=== PATIENT | female | born 1940 ===

== ENCOUNTER 2018-12-23 13:43 | Inpatient (IN) ==
[2018-12-23 14:05] LABS: Hematocrit 42.5 % (37.0-47.0); Hemoglobin 14.2 gm/dL (12.5-16.0); Mean Cell Volume 93.6 fl (78-100); Mean Corpuscular Hemoglobin 31.3 pg (27-31); Mean Corpuscular Hgb Conc 33.4 g/dl (32-36); Mean Platelet Volume 9.5 fl (8-12.5); Neutrophil # 8.2 K/mm3 (1.3-6.0); Neutrophil % 85.5 % (42-75.0); Platelet Count 300 K/mm3 (150-450); Red Blood Count 4.54 M/mm3 (4.2-5.4); Red Cell Distribution Width 12.9 % (11.5-14.0); White Blood Count 9.6 K/mm3 (4.0-10.5)
[2018-12-23 14:16] LABS: Albumin * 3.9 gm/dl (3.4-5.0); Anion Gap 13.8 mmol/L (6.8-13.8); BUN/Creatinine Ratio 20.4 (9.0-21.6); Bilirubin, Total 0.4 mg/dL (0.0-1.1); Ca. Corrected For Albumin 8.3 mg/dL (8.4-10.2); Calcium * 8.5 mg/dL (7.9-10.9); Carbon Dioxide 26.1 mmol/L (24-32.6); Potassium 3.9 mmol/L (3.4-4.6); Total Protein 7.1 gm/dL (6.2-8.2)
[2018-12-23 14:19] LABS: INR 1.01 INR (0.92-1.08); Partial Thrombolplastin Time 21.5 Seconds (24-32)
[2018-12-23] MEDS ORDERED: HYDROmorphone HCL 1 MG/ML DISP.SYRIN IV ONE (14:45)
[2018-12-23 14:53] LABS: Urine Bilirubin Negative (NEGATIVE); Urine Blood Negative /ul (NEGATIVE); Urine Ketone Negative (NEGATIVE); Urine Nitrite Negative (NEGATIVE); Urine Protein Negative (NEGATIVE); Urine Specific Gravity <=1.005 SP.GR. (1.005-1.010); Urine Urobilinogen Normal (NORMAL); Urine pH 6.5 pH (5.0-7.0)
[2018-12-23 15:07] LABS: Urine Appearance Clear (CLEAR); Urine Bacteria 1+; Urine Color Yellow; Urine RBC None Seen /hpf (0-5); Urine WBC None Seen /hpf (0-5)
--- NOTE | 2018-12-23 15:08 | ERNOTE ---
Lower Extremity HPI - Narrative Date of Service: 12/23/18 - General Lower Extremities Pain: hip: left Time Seen by Provider: 12/23/18 13:45 Source: patient, family, EMS notes reviewed Exam Limitations: no limitations - Immun/Allergies/Home Medications Immunizations: IMMUNIZATION HX Immunizations Up to Date Yes Allergies/Adverse Reactions: Allergies Allergy/AdvReac Type Severity Reaction Status Date / Time aspirin Allergy Mild Hives Verified 12/23/18 13:53 fluticasone Allergy Mild Other Verified 12/23/18 13:53 Penicillins Allergy Mild Hives Verified 12/23/18 13:53 cefprozil [From Cefzil] AdvReac Mild Nausea Verified 12/23/18 13:53 ciprofloxacin AdvReac Mild Other Verified 12/23/18 13:53 doxycycline AdvReac Mild Other Verified 12/23/18 13:53 minocycline AdvReac Mild Other Verified 12/23/18 13:53 Sulfa (Sulfonamide AdvReac Mild Other Verified 12/23/18 13:53 Antibiotics) Home Medications: HOME MEDICATIONS albuterol sulfate HFA 90 mcg/actuation aerosol inhaler 2 puff IH .Q4- 6 hours PRN #24 g 08/04/18 [Last Taken Unknown] azelastine 0.15 % (205.5 mcg) nasal spray 2 spray PASCUAL DAILY #90 ml 08/04/18 [Last Taken Unknown] denosumab 60 mg/mL subcutaneous syringe 60 mg SUB-Q [id number] #1 ml 08/04/18 [Last Taken Unknown] ergocalciferol (vitamin D2) 50,000 unit capsule 50,000 unit PO .every 2 weeks #10 cap 08/04/18 [Last Taken Unknown] fexofenadine 180 mg tablet 180 mg PO DAILY PRN #90 tab 08/04/18 [Last Taken Unknown] fluticasone 250 mcg-salmeterol 50 mcg/dose blistr powdr for inhalation 1 inh IH BID #180 ea 08/04/18 [Last Taken Unknown] ipratropium-albuterol 0.5 mg-3 mg(2.5 mg base)/3 mL nebulization soln 3 ml IH QID PRN #180 ml 08/04/18 [Last Taken Unknown] montelukast 10 mg tablet 10 mg PO QPM #90 tab 08/04/18 [Last Taken Unknown] omeprazole 40 mg capsule,delayed release 40 mg PO DAILY #90 cap 08/04/18 [Last Taken Unknown] potassium chloride ER 10 mEq tablet,extended release 10 meq PO DAILY 90 Days #90 tab 08/04/18 [Last Taken Unknown] pravastatin 40 mg tablet 40 mg PO DAILY #90 tab 08/04/18 [Last Taken Unknown] losartan 25 mg tablet 12.5 mg PO HS 90 Days #45 tab 09/05/18 [Last Taken Unknown] diltiazem CD 240 mg capsule,extended release 24 hr 240 mg PO DAILY #90 cap 09/08/18 [Last Taken Unknown] furosemide 20 mg tablet 20 mg PO DAILY #90 tab 12/01/18 [Last Taken Unknown] levothyroxine 50 mcg tablet See Rx Instructions PO DAILY #72 tab 12/01/18 [Last Taken Unknown] Zoledronic Acid/Mannitol/Water [Reclast 5 MG/100 ML Solution] 5 mg IV Q12M #1 btl 12/03/18 [Last Taken Unknown] prednisone 10 mg tablet 30 mg PO BID #42 tab 12/19/18 [Last Taken Unknown] - History of Present Illness Narrative: patient fell on left hip just mine captain, unable to walk also hurt left shoulder Occurred: just prior to arrival Location of Incident: home Method of Injury: Reports: fell, direct blow Reason for Fall: Reports: lost balance, slipped Loss of Consciousness: Reports: no loss of consciousness Modifying Factors - (Improves): Reports: rest Modifying Factors - (Worsens): Reports: movement Associated Symptoms: Reports: unable to bear weight Other Injuries: Reports: other - right shoulder Review of Systems - Review of Systems Constitutional: Present: See HPI EYE: Present: no symptoms reported ENT: Present: no symptoms reported Respiratory: Present: no symptoms reported Cardiology: Present: no symptoms reported Gastrointestinal/Abdominal: Present: no symptoms reported Genitourinary: Present: no symptoms reported Musculoskeletal: Present: See HPI, muscle pain, muscle stiffness, joint pain, joint swelling, other - right shoulder pain Skin: Present: no symptoms reported Neurological: Present: no symptoms reported Endocrine: Present: no symptoms reported Hematologic/Lymphatic: Present: no symptoms reported Psych: Present: no symptoms reported All Other Systems: All systems neg except as marked Medical History (Updated 12/20/18 @ 11:34 by Fredis Grajeda MD) Generalized anxiety disorder (Chronic) Onset Date: Unknown Asthma, moderate persistent (Chronic) Onset Date: 07/25/11 Basal cell carcinoma (BCC) (Resolved) Onset Date: 09/08/13 left lower eyelid Chronic pansinusitis (Chronic) Onset Date: 08/10/15 Chronic sinusitis (Chronic) Onset Date: 02/06/18 Febrile (Resolved) Onset Date: 01/23/18 GERD (gastroesophageal reflux disease) (Chronic) Onset Date: 02/28/11 Chronic headaches (Chronic) Onset Date: 02/06/18 Hyperlipidemia (Chronic) Onset Date: Unknown Hypertension, benign (Chronic) Onset Date: 01/23/18 Hypothyroidism (Chronic) Onset Date: 06/03/15 Osteoporosis (Chronic) Onset Date: Unknown Chronic allergic rhinitis (Chronic) Onset Date: 02/06/18 Vertigo (Chronic) Onset Date: Unknown Pain of left thumb (Acute) GERD (gastroesophageal reflux disease) (Chronic) Well-controlled Acquired hypothyroidism (Chronic) Benign essential hypertension (Chronic) Osteoarthritis (Acute) Thyroid dysfunction (Chronic) Cough (Acute) Elevated BP without diagnosis of hypertension (Ruled-out) The diagnosis of hypertension has been ruled out. Her blood pressure is elevated today, but in general it is not. Elevated LFTs (Acute) Postmenopausal (Chronic) Screening for breast cancer (Acute) Thyroid dysfunction (Chronic) Eustachian tube dysfunction (Chronic) Chronic headaches (Inactive) Conjunctivitis (Chronic) Elevated liver enzymes (Acute) Labs today. Hyponatremia (Acute) followup labs today Sinusitis (Chronic) Osteoarthritis of neck (Chronic) Hypertension (Chronic) Chronic vasomotor rhinitis (Chronic) Moderate persistent chronic asthma without complication (Chronic) Headache (Chronic) Surgical History: Surgical History (Updated 07/14/18 @ 11:51 by Ashley Leal LPN) History of appendectomy (Resolved) Onset Date: ~1977 Basal cell carcinoma (Resolved) Onset Date: 09/08/13 left lower eyelid per Dr Manning History of bladder surgery (Resolved) Onset Date: Unknown History of colonoscopy (Suspected) Onset Date: ~2014 Dr Vern Ventura- polyps; repeat in 5 years Status post functional endoscopic sinus surgery (FESS) (Resolved) Onset Date: ~1988 History of hysterectomy (Resolved) Onset Date: ~1977 partial, still has ovaries and fallopian tubes Family History: Family History (Updated 03/03/18 @ 08:33 by Gabrielle Wray LPN) Father Heart disease Prostate cancer Mother Osteoporosis History of heart bypass surgery, Onset Age: 85 Social History: Preferred Language Indian Smoking Status Never smoker Alcohol Use none Drug Use none (Last Updated 12/20/18 @ 11:35 by Fredis Grajeda MD) No Social History Section defined Physical Exam - Physical Exam General Appearance: Present: moderate distress, anxious Head Exam: Present: normal inspection, no evidence of injury Eye Exam: Normal inspection: bilateral, PERRL: bilateral, EOMI: bilateral Ears, Nose, Throat: Present: normal ENT inspection, normal pharynx Neck: Present: normal inspection, nontender Respiratory: Present: no respiratory distress, normal breath sounds, no accessory muscle use, chest nontender, lungs clear Cardiovascular/Chest: Present: regular rate, rhythm, no murmur, normal peripheral pulses Gastrointestinal/Abdominal: Present: normal bowel sounds, nontender, nondistended, soft, no organomegaly Back Exam: Present: normal inspection, normal range of motion, no CVA tenderness, no vertebral tenderness Extremity Exam: Present: normal except - - pain in left hip deformity noted, tenderness to right shoulder Neurological Exam: Present: alert, oriented, normal mood/affect, no motor/sensory deficits Skin Exam: Present: normal color, warm/dry Lymphatic Exam: Present: no adenopathy Progress - Date and Time Seen: Date and Time: 12/23/18 15:06 12/23/18 15:06 conditiion unchanged - Results and Orders Patient's Lab Results:: I have reviewed the patient's lab results. - Vital Signs Patient's Vital Signs:: I have reviewed the patient's vital signs. Vital Signs: Vital Signs 12/23/18 13:50 12/23/18 13:54 Temperature 37.1 C Pulse Rate 89 Respiratory Rate 26 H Blood Pressure 197/77 H O2 Sat by Pulse Oximetry 96 - EKG EKG #1 EKG: NSR - X-Ray X-Ray #1 X-Ray: hip Interpretation: Interp. by il - femur fracture, right shoulder no acute process, cxr no acute process - Progress/Reassessment Chief Complaint: Hip Pain/Injury Progress:: Unchanged - Transfer of Care Expected Disposition: Admit Plan - Plan Plan: to admit to hospital case discussed with dr paz and dr faria, to admit to hospital Departure Clinical Impression: Femur fracture, left - Departure Disposition: Still a patient Condition: Stable
[2018-12-23] MEDS ORDERED: ONDANSETRON HCL/PF 2 MG/ML VIAL IV PRN (15:18)
--- NOTE | 2018-12-23 17:51 | CONS ---
- Reason for consultation (1) Subtrochanteric fracture of left femur Date of Service: 12/23/18 HPI - General Narrative: Mrs. Melgar is a 78-year-old female who was at home when she fell after what she though was slipping on an area rug onto her left side resulting in pain and inability to walk. She was brought to the emergency department by EMS and found to have a displaced left subtrochanteric femur fracture. She denies reports some prior left hip pain but we reviewed that she has been on chronic osteoporosis medications that there are some radiographic signs that this could be a fracture related to this. She also reports mild chronic right hip pain w ith activity. She reports achy right shoulder pain with activity. She denies any other areas of pain at this time other than her hip and shoulder. Source: patient Exam Limitations: no limitations - History of Present Illness Timing/Duration: 4-6 hours Severity: moderate Modifying Factors - (Worsens): Reports: movement Modifying Factors - (Improves): Reports: immobilization, medication Associated Symptoms: denies symptoms Allergies/Adverse Reactions: Allergies aspirin Allergy (Mild, Verified 12/23/18 13:53) Hives wheezing as a child fluticasone Allergy (Mild, Verified 12/23/18 13:53) Other eye pressure increases per eye dr Penicillins Allergy (Mild, Verified 12/23/18 13:53) Hives cefprozil [From Cefzil] Adverse Reaction (Mild, Verified 12/23/18 13:53) Nausea ciprofloxacin Adverse Reaction (Mild, Verified 12/23/18 13:53) Other numbness doxycycline Adverse Reaction (Mild, Verified 12/23/18 13:53) Other photodermatitis minocycline Adverse Reaction (Mild, Verified 12/23/18 13:53) Other very high pressure Sulfa (Sulfonamide Antibiotics) Adverse Reaction (Mild, Verified 12/23/18 13:53) Other vasomotor rhinitis Home Medications: Home Medications Medication Instructions Recorded Last Taken albuterol sulfate HFA 90 2 puff IH .Q4- 6 hours PRN #24 g 08/04/18 Unknown mcg/actuation aerosol inhaler azelastine 0.15 % (205.5 mcg) 2 spray PASCUAL DAILY #90 ml 08/04/18 Unknown nasal spray denosumab 60 mg/mL subcutaneous 60 mg SUB-Q [id number] #1 ml 08/04/18 Unknown syringe ergocalciferol (vitamin D2) 50,000 50,000 unit PO .every 2 weeks #10 08/04/18 Unknown unit capsule cap fexofenadine 180 mg tablet 180 mg PO DAILY PRN #90 tab 08/04/18 Unknown fluticasone 250 mcg-salmeterol 50 1 inh IH BID #180 ea 08/04/18 Unknown mcg/dose blistr powdr for inhalation ipratropium-albuterol 0.5 mg-3 3 ml IH QID PRN #180 ml 08/04/18 Unknown mg(2.5 mg base)/3 mL nebulization soln montelukast 10 mg tablet 10 mg PO QPM #90 tab 08/04/18 Unknown omeprazole 40 mg capsule,delayed 40 mg PO DAILY #90 cap 08/04/18 Unknown release potassium chloride ER 10 mEq 10 meq PO DAILY 90 Days #90 tab 08/04/18 Unknown tablet,extended release pravastatin 40 mg tablet 40 mg PO DAILY #90 tab 08/04/18 Unknown losartan 25 mg tablet 12.5 mg PO HS 90 Days #45 tab 09/05/18 Unknown diltiazem CD 240 mg 240 mg PO DAILY #90 cap 09/08/18 Unknown capsule,extended release 24 hr furosemide 20 mg tablet 20 mg PO DAILY #90 tab 12/01/18 Unknown levothyroxine 50 mcg tablet See Rx Instructions PO DAILY #72 12/01/18 Unknown tab Zoledronic Acid/Mannitol/Water 5 mg IV Q12M #1 btl 12/03/18 Unknown [Reclast 5 MG/100 ML Solution] prednisone 10 mg tablet 30 mg PO BID #42 tab 12/19/18 Unknown Review of Systems - Review of Systems Generalized/Overall Review: Present: No Symptoms Reported Physical Examination - Exam Narrative: Left lower extremity: Shortened limb, palpable dorsalis pedis pulse, sensation intact light touch, no ecchymosis, lacerations or abrasions of the left hip, pain with any hip range of motion, able to move toes and ankle with hip pain. RUE - NVI, mild pain with active forward flexion and passive shoulder ROM, no gross deformity or echymosis Vital Signs: Vital Signs - Last Taken Temp 37.1 C 12/23/18 15:23 Pulse 80 12/23/18 16:10 Resp 20 12/23/18 15:23 BP 172/75 H 12/23/18 15:23 Pulse Ox 95 12/23/18 15:23 O2 Oxygen Delivery Method Room Air Constitutional: Present: Alert, Oriented x3 - Results and Findings: Narrative: AP pelvis 2 views of left hip: Displaced transverse subtrochanteric femur fracture, right side with cortical thickening in the same region which is somewhat concerning for stress reaction and possible chronic osteoporotic medication reaction. Lab/Microbiology results last 24 hrs: Abnormal/Pending Laboratory Last 24 HRS 12/23/18 12/23/18 12/23/18 Unknown 13:59 13:59 MCH Immature Gran % (Auto) Immature Gran # (Auto) Neutrophils % Lymphocytes % Neutrophils # Lymphocytes # PTT (Jordan) 21.5 L Est GFR (Non-Af Amer) 58 L Random Glucose 131 H Calcium Adj for Albumin 8.3 L Urine Bacteria 1+ H 12/23/18 13:59 MCH 31.3 H Immature Gran % (Auto) 1.50 H Immature Gran # (Auto) 0.14 H Neutrophils % 85.5 H Lymphocytes % 8.7 L Neutrophils # 8.2 H Lymphocytes # 0.83 L PTT (Merrick) Est GFR (Non-Af Amer) Random Glucose Calcium Adj for Albumin Urine Bacteria - Assessments/Findings (1) Subtrochanteric fracture of left femur Diagnosis(s): We reviewed her radiographs. At this time she needs to have her left hip repaired. The plan is for closed reduction intramedullary fixation tomorrow. We did review that she may benefit from prophylactic nailing of her right hip but we will perform this once she is recovering well from her left hip. She will need 6 weeks of DVT prophylaxis postoperatively. I would recommend that she discontinue her osteoporosis medications at this time. We did discuss that the significant half-life of this medication. The risks and recovery of her surgery were also discussed. She will need to be n.p.o. after midnight and consent will be obtained. She will receive IV Ancef perioperatively. Problem: Acute Qualifiers: Encounter type: initial encounter Fracture type: closed Fracture alignment: displaced Qualified Code(s): S72.22XA - Displaced subtrochanteric fracture of left femur, initial encounter for closed fracture
[2018-12-23] MEDS: NORMAL SALINE 1,000 ML IV PRN (17:59)
[2018-12-23] MEDS ORDERED: ceFAZolin SODIUM 1 GM VIAL IV PRN (18:12)
[2018-12-23] MEDS ORDERED: ALBUTEROL SULFATE/IPRATROPIUM 3 ML NEBU IH PRN (19:28)
[2018-12-23] MEDS ORDERED: ALBUTEROL SULFATE 200 PUFF INHALER IH PRN (19:28)
--- NOTE | 2018-12-23 19:28 | HP ---
Chief Complaint - Chief Complaint Date of Service: 12/23/18 Time of Service: 19:28 Chief Complaint: hip pain, fall History of Present Illness: 78-year-old female had a ground-level fall in her home today. She was unable to bear weight on her left hip, she is brought into the hospital by ambulance. She was evaluated in the ER, x-ray showed her to have a sub-trochanteric left femur fracture. Ortho was consulted in the ER who plan to repair the hip tomorrow. Her pain is well controlled since being admitted to the hospital, vital signs are stable. Medical History (Updated 12/23/18 @ 17:51 by Blu Ball MD) Generalized anxiety disorder (Chronic) Onset Date: Unknown Asthma, moderate persistent (Chronic) Onset Date: 07/25/11 Basal cell carcinoma (BCC) (Resolved) Onset Date: 09/08/13 left lower eyelid Chronic pansinusitis (Chronic) Onset Date: 08/10/15 Chronic sinusitis (Chronic) Onset Date: 02/06/18 Febrile (Resolved) Onset Date: 01/23/18 GERD (gastroesophageal reflux disease) (Chronic) Onset Date: 02/28/11 Chronic headaches (Chronic) Onset Date: 02/06/18 Hyperlipidemia (Chronic) Onset Date: Unknown Hypertension, benign (Chronic) Onset Date: 01/23/18 Hypothyroidism (Chronic) Onset Date: 06/03/15 Osteoporosis (Chronic) Onset Date: Unknown Chronic allergic rhinitis (Chronic) Onset Date: 02/06/18 Vertigo (Chronic) Onset Date: Unknown Pain of left thumb (Acute) GERD (gastroesophageal reflux disease) (Chronic) Well-controlled Acquired hypothyroidism (Chronic) Benign essential hypertension (Chronic) Osteoarthritis (Acute) Thyroid dysfunction (Chronic) Cough (Acute) Elevated BP without diagnosis of hypertension (Ruled-out) The diagnosis of hypertension has been ruled out. Her blood pressure is elevated today, but in general it is not. Elevated LFTs (Acute) Postmenopausal (Chronic) Screening for breast cancer (Acute) Thyroid dysfunction (Chronic) Eustachian tube dysfunction (Chronic) Chronic headaches (Inactive) Conjunctivitis (Chronic) Elevated liver enzymes (Acute) Labs today. Hyponatremia (Acute) followup labs today Sinusitis (Chronic) Osteoarthritis of neck (Chronic) Hypertension (Chronic) Chronic vasomotor rhinitis (Chronic) Moderate persistent chronic asthma without complication (Chronic) Headache (Chronic) Surgical History: Surgical History (Updated 12/23/18 @ 17:51 by Blu Ball MD) History of appendectomy (Resolved) Onset Date: ~1977 Basal cell carcinoma (Resolved) Onset Date: 09/08/13 left lower eyelid per Dr Manning History of bladder surgery (Resolved) Onset Date: Unknown History of colonoscopy (Suspected) Onset Date: ~2014 Dr Vern Ventura- polyps; repeat in 5 years Status post functional endoscopic sinus surgery (FESS) (Resolved) Onset Date: ~1988 History of hysterectomy (Resolved) Onset Date: ~1977 partial, still has ovaries and fallopian tubes Family History: Family History (Updated 03/03/18 @ 08:33 by Gabrielle Wray LPN) Father Heart disease Prostate cancer Mother Osteoporosis History of heart bypass surgery, Onset Age: 85 Social History: Patient Lives/Resources With Spouse Utilized Occupation retired Preferred Language Puerto Rican Do you have any mu-ism or Yes: Holiness cultural preference? Smoking Status Former smoker Have you smoked in the past 12 No months Do you dip or chew tobacco No Alcohol Use none Drug Use none (Last Updated 12/20/18 @ 11:35 by Fredis Grajeda MD) No Social History Section defined Review Of Systems (GEN) - Review of Systems Generalized/Overall Review: Absent: Weakness, Chills, Fever EENTM: Present: No Symptoms Reported Respiratory: Absent: Cough, Shortness of Breath Cardiac: Absent: Chest Pain, Edema Abdominal: Present: No Symptoms Reported Genitourinary: Present: No Symptoms Reported Musculoskeletal: Present: Joint Pain - Left hip, right shoulder, Joint Swelling, Muscle Pain Neurological: Present: No Symptoms Reported Skin: Present: No Symptoms Reported Endocrine: Present: No Symptoms Reported Immunizations: IMMUNIZATION HX Immunizations Up to Date Yes Allergies/Adverse Reactions: Allergies Allergy/AdvReac Type Severity Reaction Status Date / Time aspirin Allergy Mild Hives Verified 12/23/18 13:53 fluticasone Allergy Mild Other Verified 12/23/18 13:53 Penicillins Allergy Mild Hives Verified 12/23/18 13:53 cefprozil [From Cefzil] AdvReac Mild Nausea Verified 12/23/18 13:53 ciprofloxacin AdvReac Mild Other Verified 12/23/18 13:53 doxycycline AdvReac Mild Other Verified 12/23/18 13:53 minocycline AdvReac Mild Other Verified 12/23/18 13:53 Sulfa (Sulfonamide AdvReac Mild Other Verified 12/23/18 13:53 Antibiotics) Home Medications: HOME MEDICATIONS albuterol sulfate HFA 90 mcg/actuation aerosol inhaler 2 puff IH .Q4- 6 hours PRN #24 g 08/04/18 [Last Taken Unknown] azelastine 0.15 % (205.5 mcg) nasal spray 2 spray PASCUAL DAILY #90 ml 08/04/18 [Last Taken Unknown] denosumab 60 mg/mL subcutaneous syringe 60 mg SUB-Q [id number] #1 ml 08/04/18 [Last Taken Unknown] ergocalciferol (vitamin D2) 50,000 unit capsule 50,000 unit PO .every 2 weeks #10 cap 08/04/18 [Last Taken Unknown] fexofenadine 180 mg tablet 180 mg PO DAILY PRN #90 tab 08/04/18 [Last Taken Unknown] fluticasone 250 mcg-salmeterol 50 mcg/dose blistr powdr for inhalation 1 inh IH BID #180 ea 08/04/18 [Last Taken Unknown] ipratropium-albuterol 0.5 mg-3 mg(2.5 mg base)/3 mL nebulization soln 3 ml IH QID PRN #180 ml 08/04/18 [Last Taken Unknown] montelukast 10 mg tablet 10 mg PO QPM #90 tab 08/04/18 [Last Taken Unknown] omeprazole 40 mg capsule,delayed release 40 mg PO DAILY #90 cap 08/04/18 [Last Taken Unknown] potassium chloride ER 10 mEq tablet,extended release 10 meq PO DAILY 90 Days #90 tab 08/04/18 [Last Taken Unknown] pravastatin 40 mg tablet 40 mg PO DAILY #90 tab 08/04/18 [Last Taken Unknown] losartan 25 mg tablet 12.5 mg PO HS 90 Days #45 tab 09/05/18 [Last Taken Unknown] diltiazem CD 240 mg capsule,extended release 24 hr 240 mg PO DAILY #90 cap 09/08/18 [Last Taken Unknown] furosemide 20 mg tablet 20 mg PO DAILY #90 tab 12/01/18 [Last Taken Unknown] levothyroxine 50 mcg tablet See Rx Instructions PO DAILY #72 tab 12/01/18 [Last Taken Unknown] Zoledronic Acid/Mannitol/Water [Reclast 5 MG/100 ML Solution] 5 mg IV Q12M #1 btl 12/03/18 [Last Taken Unknown] prednisone 10 mg tablet 30 mg PO BID #42 tab 12/19/18 [Last Taken Unknown] Exam - Exam Vital Signs: Vital Signs - Last Taken Temp 37.1 C 12/23/18 15:23 Pulse 80 12/23/18 16:10 Resp 20 12/23/18 15:23 BP 172/75 H 12/23/18 15:23 Pulse Ox 95 12/23/18 15:23 Constitutional: Present: Alert, Oriented x3, Cooperative, Well developed ENT Exam: Present: hearing grossly normal. Absent: nasal congestion, nasal drainage Eye Exam: bilateral eye: normal inspection Neck: Present: non-tender, supple Respiratory: Present: lungs clear, normal breath sounds Cardiovascular/Chest: Present: normal peripheral pulses - Doppler of the left dorsal pedis pulse 2/4, regular rate, rhythm, no chest tenderness. Absent: tachycardia, systolic murmur Abdomen: Present: Normal bowel sounds, soft, nontender /Rectal: Present: Exam deferred Extremity: Present: normal capillary refill, leg pain - Left leg. Absent: normal range of motion Skin Exam: Present: normal color, warm/dry Neurologic: Absent: motor weakness, sensory deficit Appearance: Present: appropriate appearance, appropriate insight, neat Eye contact: Present: cooperative, good eye contact Thoughts: Present: normal thought pattern, normal mood /affect - This Diagnostic Studies: Abnormal Lab Results 12/23/18 12/23/18 12/23/18 Range/Units 13:59 13:59 13:59 MCH 31.3 H (27-31) pg Immature Gran % (Auto) 1.50 H (0.001-0.429) % Immature Gran # (Auto) 0.14 H (0.000-0.0310) K/mm3 Neutrophils % 85.5 H (42-75.0) % Lymphocytes % 8.7 L (20-51) % Neutrophils # 8.2 H (1.3-6.0) K/mm3 Lymphocytes # 0.83 L (1.5-3.5) k/mm3 PTT ([place]) 21.5 L (24-32) Seconds Est GFR (Non-Af Amer) 58 L (60-130) mL/min Random Glucose 131 H (70-110) mg/dL Calcium Adj for Albumin 8.3 L (8.4-10.2) mg/dL Urine Bacteria (NONE) 12/23/18 Range/Units Unknown MCH (27-31) pg Immature Gran % (Auto) (0.001-0.429) % Immature Gran # (Auto) (0.000-0.0310) K/mm3 Neutrophils % (42-75.0) % Lymphocytes % (20-51) % Neutrophils # (1.3-6.0) K/mm3 Lymphocytes # (1.5-3.5) k/mm3 PTT ([place]) (24-32) Seconds Est GFR (Non-Af Amer) (60-130) mL/min Random Glucose (70-110) mg/dL Calcium Adj for Albumin (8.4-10.2) mg/dL Urine Bacteria 1+ H (NONE) Laboratory Results WBC 9.6 K/mm3 (4.0-10.5) 12/23/18 13:59 RBC 4.54 M/mm3 (4.2-5.4) 12/23/18 13:59 Hgb 14.2 gm/dL (12.5-16.0) 12/23/18 13:59 Hct 42.5 % (37.0-47.0) 12/23/18 13:59 MCV 93.6 fl (78-100) 12/23/18 13:59 MCH 31.3 pg (27-31) H 12/23/18 13:59 MCHC 33.4 g/dl (32-36) 12/23/18 13:59 RDW 12.9 % (11.5-14.0) 12/23/18 13:59 Plt Count 300 K/mm3 (150-450) 12/23/18 13:59 MPV 9.5 fl (8-12.5) 12/23/18 13:59 Immature Gran % (Auto) 1.50 % (0.001-0.429) H 12/23/18 13:59 Immature Gran # (Auto) 0.14 K/mm3 (0.000-0.0310) H 12/23/18 13:59 85.5 % (42-75.0) H 12/23/18 13:59 8.7 % (20-51) L 12/23/18 13:59 4.2 % (0.0-9) 12/23/18 13:59 0.0 % (0.0-3.0) 12/23/18 13:59 0.1 % (0.0-1.0) 12/23/18 13:59 Nucleated RBC % 0.0 k/mm3 (0-1) 12/23/18 13:59 8.2 K/mm3 (1.3-6.0) H 12/23/18 13:59 0.83 k/mm3 (1.5-3.5) L 12/23/18 13:59 0.4 k/mm3 (0.0-1.0) 12/23/18 13:59 0.0 k/mm3 (0.0-0.7) 12/23/18 13:59 Absolute Basophils 0.0 k/mm3 (0.0-0.1) 12/23/18 13:59 PT 10.0 Seconds (9.1-10.7) 12/23/18 13:59 INR (Anticoag Therapy) 1.01 INR (0.92-1.08) 12/23/18 13:59 PTT ([place]) 21.5 Seconds (24-32) L 12/23/18 13:59 Sodium 135 mmol/L (132-142) 12/23/18 13:59 135 mmol/L (130-142) 12/23/18 13:59 Potassium 3.9 mmol/L (3.4-4.6) 12/23/18 13:59 Chloride 99 mmol/L (97-106) 12/23/18 13:59 Carbon Dioxide 26.1 mmol/L (24-32.6) 12/23/18 13:59 13.8 mmol/L (6.8-13.8) 12/23/18 13:59 BUN 20 mg/dL (3-23) 12/23/18 13:59 0.98 mg/dL (0.4-1.4) 12/23/18 13:59 Est GFR (Non-Af Amer) 58 mL/min (60-130) L 12/23/18 13:59 20.4 (9.0-21.6) 12/23/18 13:59 131 mg/dL (70-110) H 12/23/18 13:59 Calcium 8.5 mg/dL (7.9-10.9) 12/23/18 13:59 Calcium Adj for Albumin 8.3 mg/dL (8.4-10.2) L 12/23/18 13:59 0.4 mg/dL (0.0-1.1) 12/23/18 13:59 AST 16 U/L (0-48) 12/23/18 13:59 ALT 28 U/L (19-67) 12/23/18 13:59 72 U/L (50-170) 12/23/18 13:59 7.1 gm/dL (6.2-8.2) 12/23/18 13:59 3.9 gm/dl (3.4-5.0) 12/23/18 13:59 Yellow 12/23/18 Unknown Clear (CLEAR) 12/23/18 Unknown 6.5 pH (5.0-7.0) 12/23/18 Unknown Ur Specific [place] <=1.005 SP.GR. (1.005-1.010) 12/23/18 Unknown Negative mg/dL (NEGATIVE) 12/23/18 Unknown Negative mg/dL (NEGATIVE) 12/23/18 Unknown Negative mg/dL (NEGATIVE) 12/23/18 Unknown Negative /ul (NEGATIVE) 12/23/18 Unknown Negative (NEGATIVE) 12/23/18 Unknown Negative mg/dl (NEGATIVE) 12/23/18 Unknown Normal EU/dl (NORMAL) 12/23/18 Unknown Ur Leukocyte Esterase Negative /ul (NEGATIVE) 12/23/18 Unknown None seen /hpf (0-5) 12/23/18 Unknown None seen /hpf (0-5) 12/23/18 Unknown Ur Epithelial Cells Trace /hpf (0-5) 12/23/18 Unknown 1+ (NONE) H 12/23/18 Unknown No culture indicated 12/23/18 Unknown Assessment/Plan - Narrative Narrative: Patient admitted under inpatient for left subtrochanteric femur fracture repair. Patient will be placed n.p.o. at midnight, will start normal saline at 125 an hour at that time. IV pain meds ordered. Patient currently comfortable and has no concerns. Patient's blood pressure elevated likely due to pain. Will give her 24-hour hypertensive medication this evening so she will not need to take any in the morning. Will order as needed IV hypertensive medications to be given if systolic pressures continue to be greater than 170. Chronic medications restarted. No DVT prophylaxis at this time. Nurse will call with any questions or concerns. - Assessment/Plan (1) Subtrochanteric fracture of left femur Problem: Acute Qualifiers: Encounter type: initial encounter Fracture type: closed Fracture alignment: displaced Qualified Code(s): S72.22XA - Displaced subtrochanteric fracture of left femur, initial encounter for closed fracture (2) Hypertension, benign Problem: Chronic (3) GERD (gastroesophageal reflux disease) Problem: Chronic (4) Hypothyroidism Problem: Chronic Qualifiers: Hypothyroidism type: acquired Qualified Code(s): E03.9 - Hypothyroidism, unspecified (5) Moderate persistent chronic asthma without complication Problem: Chronic
[2018-12-23] MEDS: DILTIAZEM HCL 240 MG CAP.SR.24H PO SCH (21:20)
[2018-12-23] MEDS: FLUTICASONE PROPION/SALMETEROL 14 PUFF DISK.W.DEV IH SCH (21:20)
[2018-12-23] MEDS: LOSARTAN POTASSIUM 50 MG TABLET PO SCH (21:20)
[2018-12-23] MEDS: HYDROmorphone HCL 1 MG/ML DISP.SYRIN IV PRN (22:32)
[2018-12-24] MEDS ORDERED: NORMAL SALINE 1,000 ML IV ONE (00:01)
[2018-12-24] MEDS: HYDROmorphone HCL 1 MG/ML DISP.SYRIN IV PRN ×4 (04:36→12:27)
[2018-12-24] MEDS ORDERED: ALBUTEROL SULFATE 2.5 MG/0.5 ML VIAL.NEB IH PRN (06:33)
[2018-12-24] MEDS: PANTOPRAZOLE SODIUM 40 MG TABLET.EC PO SCH (06:50)
[2018-12-24] MEDS: LEVOTHYROXINE SODIUM 50 MCG TABLET PO SCH (06:50)
[2018-12-24] MEDS ORDERED: SIMVASTATIN 20 MG TABLET PO SCH (09:00)
[2018-12-24] MEDS ORDERED: DILTIAZEM HCL 240 MG PO SCH (09:00)
[2018-12-24] MEDS ORDERED: OMEPRAZOLE 20 MG CAPSULE.SA PO SCH (09:00)
[2018-12-24] MEDS: NORMAL SALINE 1,000 ML IV PRN (09:32)
[2018-12-24] MEDS: DILTIAZEM HCL 240 MG CAP.SR.24H PO SCH (09:36)
[2018-12-24] MEDS: FLUTICASONE PROPION/SALMETEROL 14 PUFF DISK.W.DEV IH SCH ×3 (09:38→21:38)
[2018-12-24] MEDS: AZELASTINE HCL 200 SPRAY INHALER NS SCH (09:38)
--- NOTE | 2018-12-24 10:34 | PN ---
Subjective - Date and Time Seen Date: 12/24/18 Time: 10:33 Objective Objective Narrative: Patient did well overnight, no complications or adverse events. Vital signs have been stable. Pain well controlled. Patient able to move her leg wiggle her toes, though with significant pain. Currently n.p.o., waiting for surgery. - Review of Systems Generalized/Overall Review: Denies: Weakness, Chills, Fever EENTM: Reports: No Symptoms Reported Respiratory: Denies: Cough, Shortness of Breath Cardiac: Denies: Chest Pain, Edema Abdominal: Denies: Nausea, Vomiting Genitourinary Symptoms: Reports: No Symptoms Reported Musculoskeletal Complaints: Reports: Joint Pain - Left hip, Muscle Pain Neurological: Denies: Numbness, Tingling Skin: Reports: No Symptoms Reported - Vitals Vitals: Last Vital Signs Temp 37.0 C 12/24/18 10:00 Pulse 61 12/24/18 10:00 Resp 16 12/24/18 10:00 BP 169/72 H 12/24/18 10:00 Pulse Ox 93 12/24/18 10:00 - Abnormal Lab Findings Abnormal Lab Findings: Abnormal Lab Results 12/23/18 12/23/18 12/23/18 Range/Units 13:59 13:59 13:59 MCH 31.3 H (27-31) pg Immature Gran % (Auto) 1.50 H (0.001-0.429) % Immature Gran # (Auto) 0.14 H (0.000-0.0310) K/mm3 Neutrophils % 85.5 H (42-75.0) % Lymphocytes % 8.7 L (20-51) % Neutrophils # 8.2 H (1.3-6.0) K/mm3 Lymphocytes # 0.83 L (1.5-3.5) k/mm3 PTT ([place]) 21.5 L (24-32) Seconds Est GFR (Non-Af Amer) 58 L (60-130) mL/min Random Glucose 131 H (70-110) mg/dL Calcium Adj for Albumin 8.3 L (8.4-10.2) mg/dL Urine Bacteria (NONE) 12/23/18 Range/Units Unknown MCH (27-31) pg Immature Gran % (Auto) (0.001-0.429) % Immature Gran # (Auto) (0.000-0.0310) K/mm3 Neutrophils % (42-75.0) % Lymphocytes % (20-51) % Neutrophils # (1.3-6.0) K/mm3 Lymphocytes # (1.5-3.5) k/mm3 PTT ([place]) (24-32) Seconds Est GFR (Non-Af Amer) (60-130) mL/min Random Glucose (70-110) mg/dL Calcium Adj for Albumin (8.4-10.2) mg/dL Urine Bacteria 1+ H (NONE) - Exam Constitutional: Present: Alert, Oriented x3 ENT Exam: Present: hearing grossly normal Neck: Present: non-tender, supple Breasts: Present: Exam deferred Respiratory: Present: lungs clear, normal breath sounds Cardiovascular/Chest: Present: normal peripheral pulses, regular rate, rhythm Abdomen: Present: soft, nontender, nondistended /Rectal: Present: Exam deferred Extremity: Present: normal capillary refill. Absent: normal range of motion - Deferred due to injury, non-tender Skin Exam: Present: normal color Eye contact: Present: cooperative, good eye contact Thoughts: Present: normal thought pattern, normal mood /affect Assessment/Plan Plan Narrative: Patient currently in minimal pain resting comfortably in bed, she has only required 1 dose of IV pain medication since moving to the floor from the ER. Her blood pressure has been mildly elevated but still within an acceptable range, no reason why she cannot proceed with surgery. She is currently n.p.o. Home medications are ordered and will be restarted once she is finished with surgery and placed on a regular diet. She will likely be transitioned to oral pain medications following surgery. Regular diet to be ordered. Anticoagulation is to be started, will allow Dr. Moser to run that part of her medical care at this time. Otherwise she is doing well, nurses to call with any questions or concerns. - Problems/Diagnosis (1) Subtrochanteric fracture of left femur Problem: Acute Qualifiers: Encounter type: initial encounter Fracture type: closed Fracture alignment: displaced Qualified Code(s): S72.22XA - Displaced subtrochanteric fracture of left femur, initial encounter for closed fracture (2) Hypertension, benign Problem: Chronic (3) GERD (gastroesophageal reflux disease) Problem: Chronic (4) Hypothyroidism Problem: Chronic Qualifiers: Hypothyroidism type: acquired Qualified Code(s): E03.9 - Hypothyroidism, unspecified (5) Moderate persistent chronic asthma without complication Problem: Chronic
--- NOTE | 2018-12-24 12:51 | ANES ---
Anesthesia Pre Procedure Eval Vitals/Labs: Last Vital Signs Temp 37.0 C 12/24/18 10:00 Pulse 61 12/24/18 10:00 Resp 16 12/24/18 10:00 BP 169/72 H 12/24/18 10:00 Pulse Ox 93 12/24/18 10:00 Laboratory Last Values WBC 9.6 K/mm3 (4.0-10.5) 12/23/18 13:59 RBC 4.54 M/mm3 (4.2-5.4) 12/23/18 13:59 Hgb 14.2 gm/dL (12.5-16.0) 12/23/18 13:59 Hct 42.5 % (37.0-47.0) 12/23/18 13:59 MCV 93.6 fl (78-100) 12/23/18 13:59 MCH 31.3 pg (27-31) H 12/23/18 13:59 MCHC 33.4 g/dl (32-36) 12/23/18 13:59 RDW 12.9 % (11.5-14.0) 12/23/18 13:59 Plt Count 300 K/mm3 (150-450) 12/23/18 13:59 MPV 9.5 fl (8-12.5) 12/23/18 13:59 Immature Gran % (Auto) 1.50 % (0.001-0.429) H 12/23/18 13:59 Immature Gran # (Auto) 0.14 K/mm3 (0.000-0.0310) H 12/23/18 13:59 85.5 % (42-75.0) H 12/23/18 13:59 8.7 % (20-51) L 12/23/18 13:59 4.2 % (0.0-9) 12/23/18 13:59 0.0 % (0.0-3.0) 12/23/18 13:59 0.1 % (0.0-1.0) 12/23/18 13:59 Nucleated RBC % 0.0 k/mm3 (0-1) 12/23/18 13:59 8.2 K/mm3 (1.3-6.0) H 12/23/18 13:59 0.83 k/mm3 (1.5-3.5) L 12/23/18 13:59 0.4 k/mm3 (0.0-1.0) 12/23/18 13:59 0.0 k/mm3 (0.0-0.7) 12/23/18 13:59 Absolute Basophils 0.0 k/mm3 (0.0-0.1) 12/23/18 13:59 PT 10.0 Seconds (9.1-10.7) 12/23/18 13:59 INR (Anticoag Therapy) 1.01 INR (0.92-1.08) 12/23/18 13:59 PTT (Major) 21.5 Seconds (24-32) L 12/23/18 13:59 Sodium 135 mmol/L (132-142) 12/23/18 13:59 135 mmol/L (130-142) 12/23/18 13:59 Potassium 3.9 mmol/L (3.4-4.6) 12/23/18 13:59 Chloride 99 mmol/L (97-106) 12/23/18 13:59 Carbon Dioxide 26.1 mmol/L (24-32.6) 12/23/18 13:59 13.8 mmol/L (6.8-13.8) 12/23/18 13:59 BUN 20 mg/dL (3-23) 12/23/18 13:59 0.98 mg/dL (0.4-1.4) 12/23/18 13:59 Est GFR (Non-Af Amer) 58 mL/min (60-130) L 12/23/18 13:59 20.4 (9.0-21.6) 12/23/18 13:59 131 mg/dL (70-110) H 12/23/18 13:59 Calcium 8.5 mg/dL (7.9-10.9) 12/23/18 13:59 Calcium Adj for Albumin 8.3 mg/dL (8.4-10.2) L 12/23/18 13:59 0.4 mg/dL (0.0-1.1) 12/23/18 13:59 AST 16 U/L (0-48) 12/23/18 13:59 ALT 28 U/L (19-67) 12/23/18 13:59 72 U/L (50-170) 12/23/18 13:59 7.1 gm/dL (6.2-8.2) 12/23/18 13:59 3.9 gm/dl (3.4-5.0) 12/23/18 13:59 Yellow 12/23/18 Unknown Clear (CLEAR) 12/23/18 Unknown 6.5 pH (5.0-7.0) 12/23/18 Unknown Ur Specific Logan <=1.005 SP.GR. (1.005-1.010) 12/23/18 Unknown Negative mg/dL (NEGATIVE) 12/23/18 Unknown Negative mg/dL (NEGATIVE) 12/23/18 Unknown Negative mg/dL (NEGATIVE) 12/23/18 Unknown Negative /ul (NEGATIVE) 12/23/18 Unknown Negative (NEGATIVE) 12/23/18 Unknown Negative mg/dl (NEGATIVE) 12/23/18 Unknown Normal EU/dl (NORMAL) 12/23/18 Unknown Ur Leukocyte Esterase Negative /ul (NEGATIVE) 12/23/18 Unknown None seen /hpf (0-5) 12/23/18 Unknown None seen /hpf (0-5) 12/23/18 Unknown Ur Epithelial Cells Trace /hpf (0-5) 12/23/18 Unknown 1+ (NONE) H 12/23/18 Unknown No culture indicated 12/23/18 Unknown HOME MEDICATIONS albuterol sulfate HFA 90 mcg/actuation aerosol inhaler 2 puff IH .Q4- 6 hours PRN #24 g 08/04/18 [Last Taken Unknown] azelastine 0.15 % (205.5 mcg) nasal spray 2 spray PASCUAL DAILY #90 ml 08/04/18 [Last Taken Unknown] denosumab 60 mg/mL subcutaneous syringe 60 mg SUB-Q [id number] #1 ml 08/04/18 [Last Taken Unknown] ergocalciferol (vitamin D2) 50,000 unit capsule 50,000 unit PO .every 2 weeks #10 cap 08/04/18 [Last Taken Unknown] fexofenadine 180 mg tablet 180 mg PO DAILY PRN #90 tab 08/04/18 [Last Taken Unknown] fluticasone 250 mcg-salmeterol 50 mcg/dose blistr powdr for inhalation 1 inh IH BID #180 ea 08/04/18 [Last Taken Unknown] ipratropium-albuterol 0.5 mg-3 mg(2.5 mg base)/3 mL nebulization soln 3 ml IH QID PRN #180 ml 08/04/18 [Last Taken Unknown] montelukast 10 mg tablet 10 mg PO QPM #90 tab 08/04/18 [Last Taken Unknown] omeprazole 40 mg capsule,delayed release 40 mg PO DAILY #90 cap 08/04/18 [Last Taken Unknown] potassium chloride ER 10 mEq tablet,extended release 10 meq PO DAILY 90 Days #90 tab 08/04/18 [Last Taken Unknown] pravastatin 40 mg tablet 40 mg PO DAILY #90 tab 08/04/18 [Last Taken Unknown] losartan 25 mg tablet 12.5 mg PO HS 90 Days #45 tab 09/05/18 [Last Taken Unknown] diltiazem CD 240 mg capsule,extended release 24 hr 240 mg PO DAILY #90 cap 09/08/18 [Last Taken Unknown] furosemide 20 mg tablet 20 mg PO DAILY #90 tab 12/01/18 [Last Taken Unknown] levothyroxine 50 mcg tablet See Rx Instructions PO DAILY #72 tab 12/01/18 [Last Taken Unknown] Zoledronic Acid/Mannitol/Water [Reclast 5 MG/100 ML Solution] 5 mg IV Q12M #1 btl 12/03/18 [Last Taken Unknown] prednisone 10 mg tablet 30 mg PO BID #42 tab 12/19/18 [Last Taken Unknown] Allergies/Adverse Reactions: Allergies Allergy/AdvReac Type Severity Reaction Status Date / Time aspirin Allergy Mild Hives Verified 12/23/18 13:53 fluticasone Allergy Mild Other Verified 12/23/18 13:53 Penicillins Allergy Mild Hives Verified 12/23/18 13:53 cefprozil [From Cefzil] AdvReac Mild Nausea Verified 12/23/18 13:53 ciprofloxacin AdvReac Mild Other Verified 12/23/18 13:53 doxycycline AdvReac Mild Other Verified 12/23/18 13:53 minocycline AdvReac Mild Other Verified 12/23/18 13:53 Sulfa (Sulfonamide AdvReac Mild Other Verified 12/23/18 13:53 Antibiotics) - Planned Procedure Planned Procedure: ORIF left hip Medication List Reviewed:: Yes Allergies Verified: Yes Medical History (Updated 12/23/18 @ 21:01 by Rosalio Fields DO) Generalized anxiety disorder (Chronic) Onset Date: Unknown Asthma, moderate persistent (Chronic) Onset Date: 07/25/11 Basal cell carcinoma (BCC) (Resolved) Onset Date: 09/08/13 left lower eyelid Chronic pansinusitis (Chronic) Onset Date: 08/10/15 Chronic sinusitis (Chronic) Onset Date: 02/06/18 Febrile (Resolved) Onset Date: 01/23/18 GERD (gastroesophageal reflux disease) (Chronic) Onset Date: 02/28/11 Chronic headaches (Chronic) Onset Date: 02/06/18 Hyperlipidemia (Chronic) Onset Date: Unknown Hypertension, benign (Chronic) Onset Date: 01/23/18 Hypothyroidism (Chronic) Onset Date: 06/03/15 Osteoporosis (Chronic) Onset Date: Unknown Chronic allergic rhinitis (Chronic) Onset Date: 02/06/18 Vertigo (Chronic) Onset Date: Unknown Pain of left thumb (Acute) GERD (gastroesophageal reflux disease) (Chronic) Well-controlled Acquired hypothyroidism (Chronic) Benign essential hypertension (Chronic) Osteoarthritis (Acute) Thyroid dysfunction (Chronic) Cough (Acute) Elevated BP without diagnosis of hypertension (Ruled-out) The diagnosis of hypertension has been ruled out. Her blood pressure is elevated today, but in general it is not. Elevated LFTs (Acute) Postmenopausal (Chronic) Screening for breast cancer (Acute) Thyroid dysfunction (Chronic) Eustachian tube dysfunction (Chronic) Chronic headaches (Inactive) Conjunctivitis (Chronic) Elevated liver enzymes (Acute) Labs today. Hyponatremia (Acute) followup labs today Sinusitis (Chronic) Osteoarthritis of neck (Chronic) Hypertension (Chronic) Chronic vasomotor rhinitis (Chronic) Moderate persistent chronic asthma without complication (Chronic) Headache (Chronic) Surgical History (Updated 12/23/18 @ 17:51 by Blu Ball MD) History of appendectomy (Resolved) Onset Date: ~1977 Basal cell carcinoma (Resolved) Onset Date: 09/08/13 left lower eyelid per Dr Manning History of bladder surgery (Resolved) Onset Date: Unknown History of colonoscopy (Suspected) Onset Date: ~2014 Dr Vern Ventura- polyps; repeat in 5 years Status post functional endoscopic sinus surgery (FESS) (Resolved) Onset Date: ~1988 History of hysterectomy (Resolved) Onset Date: ~1977 partial, still has ovaries and fallopian tubes Family History (Updated 03/03/18 @ 08:33 by Gabrielle Wray LPN) Father Heart disease Prostate cancer Mother Osteoporosis History of heart bypass surgery, Onset Age: 85 - Family Anesthesia History Family History:: no untoward family reactions to anesthesia, no familial bleeding tendencies, no family history of clotting disorders, no family history of premature - Airway/Neck/Teeth Within Normal Limits:: Yes Teeth Condition: intact Denture Type: Perm crown/bridge Mallampatti Score: 2 Thyromental (T-M) distance: > 6 cm Mandibulo Hyoid distance: > 3 cm - Respiratory Respiratory Physical: lungs clear Smoking Status: Former smoker Discussed smoking cessation including day of surgery: No Sleep Apnea currently treated: No Sleep Apnea by current assessment: No Discussed Risks/Treatment of ANSON: No - Cardiovascular Tolerate Activity: Fair Heart Sounds: S1 & S2, Regular - Anesthesia Assessment and Plan ASA Class: PS, III Anesthesia Type Plan: Spinal
[2018-12-24] MEDS: RINGER'S SOLUTION,LACTATED 1,000 ML IV PRN ×3 (14:55→16:23)
[2018-12-24] MEDS ORDERED: BUPIVACAINE HCL/EPINEPHRINE 50 ML VIAL IJ ONE (15:22)
[2018-12-24] MEDS ORDERED: MAG HYDROX/ALUMINUM HYD/SIMETH 30 ML UDC PO PRN (15:43)
[2018-12-24] MEDS ORDERED: diphenhydrAMINE HCL 50 MG/ML VIAL IV PRN (15:43)
[2018-12-24] MEDS ORDERED: MAGNESIUM HYDROXIDE 30 ML UDC PO PRN (15:43)
[2018-12-24] MEDS ORDERED: DEXTROSE 5%-LACTATED RINGERS 1,000 ML IV PRN (15:43)
[2018-12-24] MEDS ORDERED: ACETAMINOPHEN 500 MG TABLET PO PRN (15:43)
[2018-12-24] MEDS ORDERED: ZOLPIDEM TARTRATE 5 MG TABLET PO PRN (15:43)
--- NOTE | 2018-12-24 15:43 | POSTOP NO ---
Date of Surgery: 12/24/18 Patient Tolerated the Procedure: Well Post Operative Diagnosis/Procedures: Director Of Solutions Architecture: Noel Morales PA-C Post-operative Diagnosis: Closed displaced left subtrochanteric femur fracture Finding: Above Procedure: Open reduction cephalo-medullary fixation of left subtrochanteric femur fracture, intraoperative interpretation of x-rays Estimated Blood Loss: 200 mL Specimens: None
--- NOTE | 2018-12-24 16:16 | ANES ---
Post Anesthesia Discharge - Transfer of Care Transfer of Care handoff given to nurse: Yes - Discharge from PACU Discharge from PACU when meets criteria: Yes - Discharge to [facility] Discharge to A[facility]-no complications/pt stable: Yes
--- NOTE | 2018-12-24 16:28 | ANES ---
Post Anesthesia Assessment - Vital Signs Vitals: Last Vital Signs Temp 36.5 C 12/24/18 16:05 Pulse 76 12/24/18 16:25 Resp 10 L 12/24/18 16:25 BP 156/62 H 12/24/18 16:25 Pulse Ox 94 12/24/18 16:25 Airway Patency: Normal - Mental Status Level Of Consciousness: Awake - Pain Level Pain Score: 0 - N/V Assessment Nausea/Vomiting Presence: None Dehydration:: No
[2018-12-24] MEDS ORDERED: KETOROLAC TROMETHAMINE 15 MG/ML VIAL IV SCH (17:00)
[2018-12-24] MEDS: ceFAZolin SODIUM 1 GM in DEXTROSE 5 % IN WATER 100 ML IV SCH ×2 (18:17)
[2018-12-24] MEDS: WARFARIN SODIUM 5 MG TABLET PO SCH (18:21)
[2018-12-24] MEDS: MONTELUKAST SODIUM 10 MG TABLET PO SCH (21:37)
[2018-12-24] MEDS: LOSARTAN POTASSIUM 50 MG TABLET PO SCH (21:37)
[2018-12-24] MEDS: SIMVASTATIN 20 MG TABLET PO SCH (21:37)
[2018-12-24] MEDS: SENNOSIDES/DOCUSATE SODIUM 1 TAB TABLET PO SCH (21:42)
[2018-12-24] MEDS: HYDROcodone/ACETAMINOPHEN 1 EACH TABLET PO PRN (21:42)
[2018-12-25] MEDS: ceFAZolin SODIUM 1 GM in DEXTROSE 5 % IN WATER 100 ML IV SCH ×4 (00:45→05:51)
[2018-12-25 05:33] LABS: Hematocrit 30.4 % (37.0-47.0); Hemoglobin 9.9 gm/dL (12.5-16.0); Mean Cell Volume 95.3 fl (78-100); Mean Corpuscular Hgb Conc 32.6 g/dl (32-36); Mean Platelet Volume 9.5 fl (8-12.5); Platelet Count 180 K/mm3 (150-450); Red Blood Count 3.19 M/mm3 (4.2-5.4); Red Cell Distribution Width 12.8 % (11.5-14.0); White Blood Count 9.6 K/mm3 (4.0-10.5)
[2018-12-25 05:43] LABS: Anion Gap 10.1 mmol/L (6.8-13.8); BUN/Creatinine Ratio 14.3 (9.0-21.6); Calcium * 7.3 mg/dL (7.9-10.9); Carbon Dioxide 26.3 mmol/L (24-32.6); Estimated Creat Clear 47.6; Potassium 3.4 mmol/L (3.4-4.6); Prothrombin Time (Patient) 10.3 Seconds (9.1-10.7)
[2018-12-25 05:46] LABS: INR 1.04 INR (0.92-1.08)
[2018-12-25] MEDS: HYDROcodone/ACETAMINOPHEN 1 EACH TABLET PO PRN ×2 (05:50→19:30)
[2018-12-25] MEDS: LEVOTHYROXINE SODIUM 50 MCG TABLET PO SCH (07:23)
[2018-12-25] MEDS: PANTOPRAZOLE SODIUM 40 MG TABLET.EC PO SCH (07:23)
[2018-12-25] MEDS: FLUTICASONE PROPION/SALMETEROL 14 PUFF DISK.W.DEV IH SCH ×2 (09:30→20:38)
[2018-12-25] MEDS: DILTIAZEM HCL 240 MG CAP.SR.24H PO SCH (09:31)
[2018-12-25] MEDS: AZELASTINE HCL 200 SPRAY INHALER NS SCH (09:31)
--- NOTE | 2018-12-25 09:57 | PN ---
Subjective - Date and Time Seen Date: 12/25/18 Time: 07:45 Subjective Narrative: Sitting up in bed. She reports some mild left hip pain but is tolerable. She denies any nausea. She states that she slept okay last night but was somewhat nervous to move her leg. She has not been up with therapy yet. Objective - Vitals Vitals: Last Vital Signs Temp 37.2 C 12/25/18 07:00 Pulse 86 12/25/18 09:31 Resp 16 12/25/18 07:00 BP 143/69 12/25/18 09:31 Pulse Ox 94 12/25/18 07:00 - Abnormal Lab Findings Abnormal Lab Findings: Abnormal Lab Results 12/25/18 12/25/18 Range/Units 05:10 05:10 RBC 3.19 L (4.2-5.4) M/mm3 Hgb 9.9 L (12.5-16.0) gm/dL Hct 30.4 L (37.0-47.0) % Calcium 7.3 L (7.9-10.9) mg/dL - Exam Exam Narrative: Left lower extremity: Some bloody drainage under dressings, thigh is soft, palpable dorsalis pedis pulse, sensation is intact light touch, able to flex and extend her toes and ankle, mild pain with hip range of motion logroll. Constitutional: Present: Alert, Oriented x3 Cauti Physician Documentation - Urinary Catheter Management Urethral (Peña) Date of Removal: 12/25/18 Time of Removal: 04:44 Assessment/Plan - Problems/Diagnosis (1) Subtrochanteric fracture of left femur Problem: Acute Qualifiers: Encounter type: subsequent encounter Fracture type: closed Fracture alignment: displaced Fracture healing: with routine healing Qualified Code(s): S72.22XD - Displaced subtrochanteric fracture of left femur, subsequent encounter for closed fracture with routine healing Narrative: She will be 50% weightbearing with range of motion as tolerated. She will need 6 weeks of DVT prophylaxis. We discussed discontinuing her osteoporotic medications. From an orthopedic standpoint she can be discharged or transferred to a skilled therapy facility once medically stable. She will need to keep her wounds dry. Cover with dry gauze and tape. Utilize compression stocking on the left leg. She will follow-up in 2 to 3 weeks with orthopedics.
[2018-12-25] MEDS ORDERED: LORATADINE 10 MG TABLET PO PRN (10:00)
[2018-12-25] MEDS: FUROSEMIDE 20 MG TABLET PO SCH (10:35)
[2018-12-25] MEDS: POTASSIUM CHLORIDE 10 MEQ TABLET.SA PO SCH (10:35)
--- NOTE | 2018-12-25 12:50 | PN ---
Subjective - Date and Time Seen Date: 12/25/18 Time: 12:50 Subjective Narrative: Postop day 1ORIF sub-trochanteric femur fracture repair. Patient tolerated procedure well without complication. Pain currently well controlled. Hemoglobin down slightly compared to previous day, will monitorRepeat CBC in the a.m. patient started on warfarin today, currently being bridged with Lovenox. Likely discharge to SNF in the next day or 2 as long as there are no unforeseen complications. Patient currently doing well Hypertension well-controlled, restarted home medication for this. Restarted medications for other chronic medical conditions. Started on a regular diet. Nurse will call with any questions or concerns. Objective - Vitals Vitals: Last Vital Signs Temp 37.2 C 12/25/18 07:00 Pulse 86 12/25/18 10:35 Resp 16 12/25/18 07:00 BP 143/69 12/25/18 10:35 Pulse Ox 94 12/25/18 07:00 - Abnormal Lab Findings Abnormal Lab Findings: Abnormal Lab Results 12/25/18 12/25/18 Range/Units 05:10 05:10 RBC 3.19 L (4.2-5.4) M/mm3 Hgb 9.9 L (12.5-16.0) gm/dL Hct 30.4 L (37.0-47.0) % Calcium 7.3 L (7.9-10.9) mg/dL Cauti Physician Documentation - Urinary Catheter Management Urethral (Peña) Date of Removal: 12/25/18 Time of Removal: 04:44 Assessment/Plan - Problems/Diagnosis (1) Subtrochanteric fracture of left femur Problem: Acute Qualifiers: Encounter type: subsequent encounter Fracture type: closed Fracture alignment: displaced Fracture healing: with routine healing Qualified Code(s): S72.22XD - Displaced subtrochanteric fracture of left femur, subsequent encounter for closed fracture with routine healing (2) Hypertension, benign Problem: Chronic (3) GERD (gastroesophageal reflux disease) Problem: Chronic (4) Hypothyroidism Problem: Chronic Qualifiers: Hypothyroidism type: acquired Qualified Code(s): E03.9 - Hypothyroidism, unspecified (5) Moderate persistent chronic asthma without complication Problem: Chronic
[2018-12-25] MEDS ORDERED: ENOXAPARIN SODIUM 40 MG/0.4 ML SYRG SC SCH (14:43)
[2018-12-25] MEDS: MONTELUKAST SODIUM 10 MG TABLET PO SCH (16:56)
[2018-12-25] MEDS: WARFARIN SODIUM 5 MG TABLET PO SCH (16:57)
--- NOTE | 2018-12-25 17:31 | OR ---
Operative Report - Dictated Report Narrative: Date: 12/24/2018 Surgeon: Blu Ball M.D. Airport Attendant: Noel Morales PA-C (provide an essential set of educated hands that assisted with positioning, prepping, manipulation, retraction, draping, placement of implants and instruments, irrigation of wounds, and closure of wou nds as well as placement of dressings all of which cannot be performed by the available surgical crew) Preoperative diagnosis: Closed left subtrochanteric femur fracture Postoperative diagnosis: Closed left subtrochanteric femur fracture Operations and procedures: 1. Open reduction, cephalo-medullary fixation left subtrochanteric femur fracture 2. Intraoperative interpretation of radiographs Anesthesia: Spinal Specimens: None Estimated blood loss: 200 milliliters Retained implants: [employer] Trigen InterTAN 130 degree size 11.5 mm by 32 centimeter nail with 100 millimeter lag screw and 95 millimeter compression screw, with distal interlock screw in the dynamic hole Complications: None Indications for procedure: Mrs. Melgar is a 78-year-old female who injured the left leg after a ground- level fall at home. They were admitted to the hospital after being evaluated in the emergency department. Once the medical provider felt that they were stable for surgical treatment, the risks and benefits alternatives were discussed. The risks of , blood clots, bleeding, infection, nerve/tendon/blood vessel injury, malunion, nonunion, failure of implants, painful implants, arthrosis, and need for additional procedures were discussed. The extremity was marked and consent was obtained on the floor. Procedure: After marking the operative extremity on the floor, the patient was taken to the operating room. A timeout was performed. IV antibiotics consisting of Ancef were administered. A spinal anesthetic was induced by anesthesia, and the patient was then placed onto a fracture table with a well-padded perineal post. The nonoperative leg was placed in a well-padded traction boot in slight extension without any traction with an SCD on the leg. The operative leg was placed in a well-padded traction boot. Longitudinal traction, internal rotation, and flexion were utilized in order to reduce the fracture. Preliminary images were attained utilizing C-arm in both the AP and lateral views. This confirmed that we had obtained adequate visualization of the fracture as well as a basic preliminary reduction. Next the hip was then prepped and draped in a standard sterile fashion. Next the guidewire was placed percutaneously proximal to the greater trochanter to adrián a starting point at the tip of the greater trochanter centered on the lateral view. And are projected head screw skin incision site a longitudinal incision was made in order to obtain reduction and preliminary control over the proximal and distal fragments. A reduction clamp and Steinmann pin was utilized in order to manipulate the fragments into more appropriate alignment. The guidewire was passed down to the level below the lesser trochanter. A scalpel was utilized in order to dissect down to the greater trochanter in order to place the soft tissue protector down to bone. The entry drill was then placed down the proximal femur to the level of the lesser trochanter. While holding the fracture reduced, a ball tipped guidewire was placed down to the distal femur. A series of reamers up to 13 mm was utilized with good chatter at the isthmus. The nail was then measured and inserted. Using the alignment device on the outrigger, the prior lateral incision was used in order to place the alignment guide to the head screw outrigger. The guidewire was placed into the femoral head in a center-center position on AP and lateral views. The tip-apex distance of less than 25 mm combined was obtained. Once we felt that we had placed a guidewire in the appropriate position, it was measured. Next the compression screw site was drilled through the lateral femoral cortex. This was then drilled down to the appropriate depth, again confirming that we are within the confines the bone. The derotational bar was then placed and the lag screw was drilled. The lag screw was then secured in place seating fully ensuring that we were within the confines of the bone. The compression screw was then inserted . Once is felt that we had adequately stabilized the subtrochanteric fracture, the distal interlocking screw was placed in a dynamic position using perfect circles with the C arm. It was confirmed to be the appropriate length and within the nail on both AP and lateral views. The nail was secured allowing for controlled compression and the outrigger was removed. The wounds were then thoroughly irrigated. Final images were obtained. The hip was placed through range of motion and showed no crepitance. The deep fascia was closed with 0 Vicryl, the subcutaneous tissue with 3-0 Vicryl, and the skin was closed with carmita. Sterile dressings of Xeroform, 4 x 4, and tape were applied. All sponge, sharp, and instrument counts were correct prior to closing the wounds. The patient was then awoken and transferred to the postanesthesia care unit in stable condition.
[2018-12-25] MEDS: SIMVASTATIN 20 MG TABLET PO SCH (20:38)
[2018-12-25] MEDS: SENNOSIDES/DOCUSATE SODIUM 1 TAB TABLET PO SCH (20:38)
[2018-12-25] MEDS: LOSARTAN POTASSIUM 50 MG TABLET PO SCH (20:39)
[2018-12-26] MEDS: HYDROcodone/ACETAMINOPHEN 1 EACH TABLET PO PRN ×3 (04:50→14:01)
[2018-12-26 05:28] LABS: Hematocrit 26.9 % (37.0-47.0); Hemoglobin 9.1 gm/dL (12.5-16.0); Mean Cell Volume 94.4 fl (78-100); Mean Corpuscular Hemoglobin 31.9 pg (27-31); Mean Corpuscular Hgb Conc 33.8 g/dl (32-36); Neutrophil # 5.5 K/mm3 (1.3-6.0); Neutrophil % 63.4 % (42-75.0); Platelet Count 143 K/mm3 (150-450); Red Blood Count 2.85 M/mm3 (4.2-5.4); Red Cell Distribution Width 12.9 % (11.5-14.0); White Blood Count 8.7 K/mm3 (4.0-10.5)
[2018-12-26 05:37] LABS: Prothrombin Time (Patient) 11.4 Seconds (9.1-10.7)
[2018-12-26 05:57] LABS: INR 1.16 INR (0.92-1.08)
[2018-12-26] MEDS: PANTOPRAZOLE SODIUM 40 MG TABLET.EC PO SCH (08:04)
[2018-12-26] MEDS: LEVOTHYROXINE SODIUM 50 MCG TABLET PO SCH (08:04)
[2018-12-26] MEDS: FLUTICASONE PROPION/SALMETEROL 14 PUFF DISK.W.DEV IH SCH (09:52)
[2018-12-26] MEDS: DILTIAZEM HCL 240 MG CAP.SR.24H PO SCH (09:52)
[2018-12-26] MEDS: AZELASTINE HCL 200 SPRAY INHALER NS SCH (09:52)
[2018-12-26] MEDS: POTASSIUM CHLORIDE 10 MEQ TABLET.SA PO SCH (09:53)
[2018-12-26] MEDS: FUROSEMIDE 20 MG TABLET PO SCH (09:53)
--- NOTE | 2018-12-26 10:53 | PN ---
Subjective - Date and Time Seen Date: 12/26/18 Time: 10:51 Subjective Narrative: Sitting up in chair. Doing well. She is able to walk in the room with therapy. She states that she slept okay last night. She is planning on going to a senior care facility today. Objective - Vitals Vitals: Last Vital Signs Temp 36.8 C 12/26/18 07:00 Pulse 109 H 12/26/18 09:53 Resp 20 12/26/18 07:00 BP 139/62 12/26/18 09:53 Pulse Ox 96 12/26/18 07:00 - Abnormal Lab Findings Abnormal Lab Findings: Abnormal Lab Results 12/26/18 12/26/18 Range/Units 05:27 05:27 RBC 2.85 L (4.2-5.4) M/mm3 Hgb 9.1 L (12.5-16.0) gm/dL Hct 26.9 L (37.0-47.0) % MCH 31.9 H (27-31) pg Plt Count 143 L (150-450) K/mm3 Immature Gran % (Auto) 2.10 H (0.001-0.429) % Immature Gran # (Auto) 0.18 H (0.000-0.0310) K/mm3 Lymphocytes % 17.0 L (20-51) % Monocytes % 14.4 H (0.0-9) % Lymphocytes # 1.47 L (1.5-3.5) k/mm3 Monocytes # 1.3 H (0.0-1.0) k/mm3 PT 11.4 H (9.1-10.7) Seconds INR (Anticoag Therapy) 1.16 H (0.92-1.08) INR - Exam Exam Narrative: Left lower extremity: Neurovascular intact, dressings dry, thigh soft, mild swelling, minimal pain with hip range of motion. Cauti Physician Documentation - Urinary Catheter Management Urethral (Peña) Date of Removal: 12/25/18 Time of Removal: 04:44 Assessment/Plan - Problems/Diagnosis (1) Subtrochanteric fracture of left femur Problem: Acute Qualifiers: Encounter type: subsequent encounter Fracture type: closed Fracture alignment: displaced Fracture healing: with routine healing Qualified Code(s): S72.22XD - Displaced subtrochanteric fracture of left femur, subsequent encounter for closed fracture with routine healing Narrative: She will need 6 weeks of DVT prophylaxis. We'll see her back in 2-3 weeks to remove carmita. She is to keep her wound dry. Cover with dry gauze and tape and change every 2-3 days as needed. She is to report any fever, uncontrolled pain, or increased drainage. She is 50% weightbearing with range of motion as tolerated.
--- NOTE | 2018-12-26 11:42 | DS ---
(1) Subtrochanteric fracture of left femur Problem: Acute Qualifiers: Encounter type: subsequent encounter Fracture type: closed Fracture alignment: displaced Fracture healing: with routine healing Qualified Code(s): S72.22XD - Displaced subtrochanteric fracture of left femur, subsequent encounter for closed fracture with routine healing (2) Acute blood loss anemia Problem: Acute (3) Hypertension, benign Problem: Chronic (4) GERD (gastroesophageal reflux disease) Problem: Chronic (5) Hypothyroidism Problem: Chronic Qualifiers: Hypothyroidism type: acquired Qualified Code(s): E03.9 - Hypothyroidism, unspecified (6) Moderate persistent chronic asthma without complication Problem: Chronic Description of Stay: 70-year-old female presented to the hospital 3 days prior to following a ground- level fall that resulted in a left subtrochanteric femur fracture. Patient was taken back to surgery for ORIF with Dr. Ball. Patient tolerated procedure well with minimal complication. Pain is been well controlled on oral pain medicines. Patient does have an acute blood loss anemia with her hemoglobin goi ng from 14.2 down to 9.1 but otherwise has slowed it is stable. Will recommend repeat CBC in her short-term nursing facility that she is going to for physical therapy. Also patient started on warfarin for DVT preventative and this will need to be monitored over the next few days as her dosage has been adjusted, her most recent INR was 1.16. She currently is taking 7.5 mg of Coumadin daily. Pain medicine, Lovenox, Coumadin will be sent to her pharmacy prior to discharge Patient is overall in stable condition. Her vital signs have been stable while here, she has been afebrile. No changes to her other chronic medications other than cessation of prednisone that she takes for her moderate to severe asthma. Advised her to follow-up with Dr. James Rivers her PCP in regards to other possible treatments if she does have a flare which she agrees to do. Patient has been accepted to [facility] for the short-term he will provide longterm and physical therapy. Procedures Performed: see notes below List Procedures: ORIF left subtrochanteric femur fracture repair Results and Findings: Lab Pending Results 12/23/18 13:59: WBC 9.6, RBC 4.54, Hgb 14.2, Hct 42.5, MCV 93.6, MCH 31.3 H, MCHC 33.4, RDW 12.9, Plt Count 300, MPV 9.5, Immature Gran % (Auto) 1.50 H, Immature Gran # (Auto) 0.14 H, Neutrophils % 85.5 H, Lymphocytes % 8.7 L, Monocytes % 4.2, Eosinophils % 0.0, Basophils % 0.1, Nucleated RBC % 0.0, Neutrophils # 8.2 H, Lymphocytes # 0.83 L, Monocytes # 0.4, Eosinophils # 0.0, Absolute Basophils 0.0 12/23/18 13:59: Sodium 135, Plasma Sodium 135, Potassium 3.9, Chloride 99, Carbon Dioxide 26.1, Anion Gap 13.8, BUN 20, Creatinine 0.98, Est GFR (Non-Af Amer) 58 L, BUN/Creatinine Ratio 20.4, Random Glucose 131 H, Calcium 8.5, Calcium Adj for Albumin 8.3 L, Total Bilirubin 0.4, AST 16, ALT 28, Alkaline Phosphatase 72, Total Protein 7.1, Albumin 3.9 12/23/18 13:59: PT 10.0, INR (Anticoag Therapy) 1.01, PTT ([place]) 21.5 L 12/23/18 : Urine Color Yellow, Urine Appearance Clear, Urine pH 6.5, Ur Specific [place] <=1.005, Urine Protein Negative, Urine Glucose (UA) Negative, Urine Ketones Negative, Urine Blood Negative, Urine Nitrate Negative, Urine Bilirubin Negative, Urine Urobilinogen Normal, Ur Leukocyte Esterase Negative, Urine RBC None seen, Urine WBC None seen, Ur Epithelial Cells Trace, Urine Bacteria 1+ H, Urine Culture Comments No culture indicated 12/25/18 05:10: WBC 9.6, RBC 3.19 L, Hgb 9.9 L, Hct 30.4 L, MCV 95.3, MCH 31.0, MCHC 32.6, RDW 12.8, Plt Count 180, MPV 9.5 12/25/18 05:10: Sodium 132, Plasma Sodium 132, Potassium 3.4, Chloride 99, Carbon Dioxide 26.3, Anion Gap 10.1, BUN 11, Creatinine 0.77, Est GFR (Non-Af Amer) 77 D, BUN/Creatinine Ratio 14.3, Random Glucose 96, Calcium 7.3 L 12/25/18 05:10: PT 10.3, INR (Anticoag Therapy) 1.04 12/26/18 05:27: PT 11.4 H, INR (Anticoag Therapy) 1.16 H 12/26/18 05:27: WBC 8.7, RBC 2.85 L, Hgb 9.1 L, Hct 26.9 L, MCV 94.4, MCH 31.9 H, MCHC 33.8, RDW 12.9, Plt Count 143 L, MPV 9.0, Immature Gran % (Auto) 2.10 H, Immature Gran # (Auto) 0.18 H, Neutrophils % 63.4, Lymphocytes % 17.0 L, M onocytes % 14.4 H, Eosinophils % 3.0, Basophils % 0.1, Nucleated RBC % 0.0, Neutrophils # 5.5, Lymphocytes # 1.47 L, Monocytes # 1.3 H, Eosinophils # 0.3, Absolute Basophils 0.0 Discharge Location: [facility] Disposition: [facility] Condition: Stable Level of Care: SNF Discharge Activity: Partial-Weight bearing Discharge Diet: General/regular food Mcfp Therapy: Physicial Therapy, Occupation Therapy Referrals: Fredis Grajeda MD [Primary Care Provider] - Additional Patient Instructions (free text): [facility] for [facility] PT and OT to evaluate and treat. She will be 50% weightbearing with range of motion as tolerated. She will need 6 weeks of DVT prophylaxis. She will need to keep her wounds dry. Cover with dry gauze and tape and change every 2-3 days as needed. She is to report any fever, uncontrolled pain, or increased drainage. Utilize compression stocking on the left leg. Follow-up in 2 to [address] Ball at [facility] to remove carmita on Saturday at 10:45am. Prescriptions (Any new or edited meds): HYDROcodone/ACETAMINOPHEN [[place] 5-325] 1 ea PO Q4H PRN #60 tab PRN Reason: Moderate Pain (Pain Scale 4-6) Complete Home Medications List: Complete Home Medication List: albuterol sulfate HFA 90 mcg/actuation aerosol inhaler 2 puff IH .Q4- 6 hours PRN #24 g 08/04/18 azelastine 0.15 % (205.5 mcg) nasal spray 2 spray PASCUAL DAILY #90 ml 08/04/18 denosumab 60 mg/mL subcutaneous syringe 60 mg SUB-Q [id number] #1 ml 08/04/18 ergocalciferol (vitamin D2) 50,000 unit capsule 50,000 unit PO .every 2 weeks #10 cap 08/04/18 fexofenadine 180 mg tablet 180 mg PO DAILY PRN #90 tab 08/04/18 fluticasone 250 mcg-salmeterol 50 mcg/dose blistr powdr for inhalation 1 inh IH BID #180 ea 08/04/18 ipratropium-albuterol 0.5 mg-3 mg(2.5 mg base)/3 mL nebulization soln 3 ml IH QID PRN #180 ml 08/04/18 montelukast 10 mg tablet 10 mg PO QPM #90 tab 08/04/18 omeprazole 40 mg capsule,delayed release 40 mg PO DAILY #90 cap 08/04/18 potassium chloride ER 10 mEq tablet,extended release 10 meq PO DAILY 90 Days #90 tab 08/04/18 pravastatin 40 mg tablet 40 mg PO DAILY #90 tab 08/04/18 losartan 25 mg tablet 12.5 mg PO HS 90 Days #45 tab 09/05/18 diltiazem CD 240 mg capsule,extended release 24 hr 240 mg PO DAILY #90 cap 09/08/18 furosemide 20 mg tablet 20 mg PO DAILY #90 tab 12/01/18 levothyroxine 50 mcg tablet See Rx Instructions PO DAILY #72 tab 12/01/18 Zoledronic Acid/Mannitol/Water [Reclast 5 MG/100 ML Solution] 5 mg IV Q12M #1 btl 12/03/18 prednisone 10 mg tablet 30 mg PO BID #42 tab 12/19/18 HYDROcodone/ACETAMINOPHEN [[place] 5-325] 1 ea PO Q4H PRN #60 tab 12/26/18
[2018-12-26] MEDS ORDERED: ENOXAPARIN SODIUM 40 MG/0.4 ML SYRG SC ONE (13:30)
[2018-12-26 13:56] VITALS: BP 126/60
[2018-12-26] MEDS ORDERED: WARFARIN SODIUM 7.5 MG TABLET PO SCH (17:00)
[2018-12-27] MEDS ORDERED: AZELASTINE HCL 200 SPRAY INHALER NS SCH (09:00)
== END 2018-12-26 14:30 | DRG 481 ==
LOC: ER 13:43 → MS 15:05
PROVIDERS: ADMIT Family Medicine; ATTEND Family Medicine
DX: S72.22XA Displaced subtrochanteric fracture of left femur, initial encounter for closed fracture; D62 Acute posthemorrhagic anemia; J45.40 Moderate persistent asthma, uncomplicated; E03.9 Hypothyroidism, unspecified; W01.0XXA Fall on same level from slipping, tripping and stumbling without subsequent striking against object, initial encounter; Z87.891 Personal history of nicotine dependence; Z91.81 History of falling; I10 Essential (primary) hypertension; K21.9 Gastro-esophageal reflux disease without esophagitis
CPT/HCPCS: 36415; 71010; 71045; 73030; 73502; 73562; 76000; 80048; 80053; 81001; 85025; 85027; 85610; 85730; 93005; 96374; 97110; 97116; 97161; 97165; 97530; 97535; 99285; J2405

== ENCOUNTER 2019-04-29 09:46 | Inpatient (IN) ==
[~2019-04-29 09:46] MED LIST: RINGER'S SOLUTION,LACTATED 1,000 ML IV PRN; TRANEXAMIC ACID 1,000 MG in NORMAL SALINE 100 ML IV PRN; ceFAZolin SODIUM 1 GM VIAL IV PRN
--- NOTE | 2019-04-29 10:28 | ANES ---
Anesthesia Pre Procedure Eval Vitals/Labs: Last Vital Signs Temp 36.3 C 04/29/19 10:03 Pulse 80 04/29/19 10:03 Resp 16 04/29/19 10:03 BP 183/76 H 04/29/19 10:03 Pulse Ox 97 04/29/19 10:03 HOME MEDICATIONS albuterol sulfate HFA 90 mcg/actuation aerosol inhaler 2 puff IH .Q4- 6 hours PRN #24 g 08/04/18 [Last Taken Unknown] ergocalciferol (vitamin D2) 50,000 unit capsule 50,000 unit PO .every 2 weeks #10 cap 08/04/18 [Last Taken 04/28/19] fexofenadine 180 mg tablet 180 mg PO DAILY PRN #90 tab 08/04/18 [Last Taken Unknown] fluticasone 250 mcg-salmeterol 50 mcg/dose blistr powdr for inhalation 1 inh IH BID #180 ea 08/04/18 [Last Taken 04/28/19] ipratropium-albuterol 0.5 mg-3 mg(2.5 mg base)/3 mL nebulization soln 3 ml IH QID PRN #180 ml 08/04/18 [Last Taken Unknown] montelukast 10 mg tablet 10 mg PO QPM #90 tab 08/04/18 [Last Taken 04/28/19] omeprazole 40 mg capsule,delayed release 40 mg PO DAILY #90 cap 08/04/18 [Last Taken 04/28/19] pravastatin 40 mg tablet 40 mg PO DAILY #90 tab 08/04/18 [Last Taken 04/28/19] losartan 25 mg tablet 12.5 mg PO HS 90 Days #45 tab 09/05/18 [Last Taken 04/28/19] diltiazem CD 240 mg capsule,extended release 24 hr 240 mg PO DAILY #90 cap 09/08/18 [Last Taken 04/29/19] levothyroxine 50 mcg tablet See Rx Instructions PO DAILY #72 tab 12/01/18 [Last Taken 04/28/19] Acetaminophen [Tylenol] 1,000 mg PO Q6H PRN tab 12/26/18 [Last Taken Unknown] Azelastine HCl [Astepro Nasal [place]] 2 spray NS DAILY inhaler 12/26/18 [Last Taken Unknown] furosemide 20 mg tablet 40 mg PO DAILY #1 tab 04/03/19 [Last Taken 04/28/19] potassium chloride ER 10 mEq tablet,extended release 20 meq PO DAILY 90 Days #180 tab 04/03/19 [Last Taken 04/28/19] Knee-high compression stockings 0 .ROUTE .MEDSUPPLY #1 ea 04/08/19 [Last Taken Unknown] prednisone 10 mg tablet 30 mg PO BID #60 tab 04/08/19 [Last Taken 04/22/19] Allergies/Adverse Reactions: Allergies Allergy/AdvReac Type Severity Reaction Status Date / Time aspirin Allergy Mild Hives Verified 04/29/19 09:59 fluticasone Allergy Mild Other Verified 04/29/19 09:59 Penicillins Allergy Mild Hives Verified 04/29/19 09:59 cefprozil [From Cefzil] AdvReac Mild Nausea Verified 04/29/19 09:59 ciprofloxacin AdvReac Mild Other Verified 04/29/19 09:59 doxycycline AdvReac Mild Other Verified 04/29/19 09:59 minocycline AdvReac Mild Other Verified 04/29/19 09:59 Sulfa (Sulfonamide AdvReac Mild Other Verified 04/29/19 09:59 Antibiotics) - Planned Procedure Planned Procedure: Prophylactic Nail Fixation Right Femur Medication List Reviewed:: Yes Allergies Verified: Yes Medical History (Updated 04/08/19 @ 09:56 by Fredis Grajeda MD) Subtrochanteric fracture of left femur (Acute) IM Fixation 12/24/18 [place] Generalized anxiety disorder (Chronic) Onset Date: Unknown Basal cell carcinoma (BCC) (Resolved) Onset Date: 09/08/13 left lower eyelid Chronic pansinusitis (Chronic) Onset Date: 08/10/15 GERD (gastroesophageal reflux disease) (Chronic) Onset Date: 02/28/11 Hyperlipidemia (Chronic) Onset Date: Unknown Osteoporosis (Chronic) Onset Date: Unknown Chronic allergic rhinitis (Chronic) Onset Date: 02/06/18 Vertigo (Chronic) Onset Date: Unknown Pain of left thumb (Acute) GERD (gastroesophageal reflux disease) (Chronic) Well-controlled Acquired hypothyroidism (Chronic) Benign essential hypertension (Chronic) Osteoarthritis (Acute) Elevated BP without diagnosis of hypertension (Ruled-out) The diagnosis of hypertension has been ruled out. Her blood pressure is elevated today, but in general it is not. Elevated LFTs (Acute) Postmenopausal (Chronic) Screening for breast cancer (Acute) Thyroid dysfunction (Chronic) Eustachian tube dysfunction (Chronic) Chronic headaches (Inactive) Conjunctivitis (Chronic) Elevated liver enzymes (Acute) Labs today. Hyponatremia (Acute) followup labs today Sinusitis (Chronic) Osteoarthritis of neck (Chronic) Hypertension (Chronic) Chronic vasomotor rhinitis (Chronic) Moderate persistent chronic asthma without complication (Chronic) Headache (Chronic) Surgical History (Updated 01/13/19 @ 11:20 by Marie Hutchison RN) History of appendectomy (Resolved) Onset Date: ~1977 Basal cell carcinoma (Resolved) Onset Date: 09/08/13 left lower eyelid per Dr Manning History of bladder surgery (Resolved) Onset Date: Unknown History of colonoscopy (Suspected) Onset Date: ~2014 Dr Vern Ventura- polyps; repeat in 5 years Status post functional endoscopic sinus surgery (FESS) (Resolved) Onset Date: ~1988 History of hysterectomy (Resolved) Onset Date: ~1977 partial, still has ovaries and fallopian tubes S/p left hip fracture Onset Date: 12/24/18 open reduction cephalo-medullary fixation left subtrochanteric femur fracture Family History (Updated 03/03/18 @ 08:33 by Gabrielle Wray LPN) Father Heart disease Prostate cancer Mother Osteoporosis History of heart bypass surgery, Onset Age: 85 - Family Anesthesia History Family History:: no untoward family reactions to anesthesia, no familial bleeding tendencies, no family history of clotting disorders, no family history of premature - Airway/Neck/Teeth Within Normal Limits:: Yes Teeth Condition: intact Denture Type: Perm crown/bridge Mallampatti Score: 2 Thyromental (T-M) distance: > 6 cm Mandibulo Hyoid distance: > 3 cm - Respiratory Respiratory Physical: lungs clear Smoking Status: Former smoker Discussed smoking cessation including day of surgery: No Sleep Apnea currently treated: No Sleep Apnea by current assessment: No Discussed Risks/Treatment of ANSON: No - Cardiovascular Tolerate Activity: Fair Heart Sounds: S1 & S2, Regular - Anesthesia Assessment and Plan ASA Class: PS, III Anesthesia Type Plan: General ET
[2019-04-29] MEDS ORDERED: BUPIVACAINE HCL 50 ML VIAL IJ ONE (11:46)
[2019-04-29] MEDS ORDERED: ZOLPIDEM TARTRATE 5 MG TABLET PO PRN (12:03)
[2019-04-29] MEDS ORDERED: DEXTROSE 5%-LACTATED RINGERS 1,000 ML IV PRN (12:03)
[2019-04-29] MEDS ORDERED: MAGNESIUM HYDROXIDE 30 ML UDC PO PRN (12:03)
[2019-04-29] MEDS ORDERED: diphenhydrAMINE HCL 50 MG/ML VIAL IV PRN (12:03)
[2019-04-29] MEDS ORDERED: ONDANSETRON HCL/PF 2 MG/ML VIAL IV PRN (12:03)
[2019-04-29] MEDS ORDERED: ACETAMINOPHEN 500 MG TABLET PO PRN (12:03)
[2019-04-29] MEDS ORDERED: oxyCODONE HCL/ACETAMINOPHEN 1 TAB TABLET PO PRN (12:03)
[2019-04-29] MEDS ORDERED: MAG HYDROX/ALUMINUM HYD/SIMETH 30 ML UDC PO PRN (12:03)
[2019-04-29] MEDS ORDERED: LORATADINE 10 MG TABLET PO PRN (12:06)
[2019-04-29] MEDS ORDERED: ALBUTEROL SULFATE 2.5 MG/0.5 ML VIAL.NEB IH PRN (12:06)
[2019-04-29] MEDS ORDERED: ALBUTEROL SULFATE/IPRATROPIUM 3 ML NEBU IH PRN (12:06)
[2019-04-29] MEDS: MORPHINE SULFATE 2 MG/ML DISP.SYRIN IV PRN ×3 (12:32→13:38)
--- NOTE | 2019-04-29 12:32 | ANES ---
Post Anesthesia Assessment - Vital Signs Vitals: Last Vital Signs Temp 36.5 C 04/29/19 12:25 Pulse 75 04/29/19 12:25 Resp 14 04/29/19 12:25 BP 122/68 04/29/19 12:25 Pulse Ox 98 04/29/19 12:25 Airway Patency: Normal - Mental Status Level Of Consciousness: Awake - Pain Level Pain Score: 5 - N/V Assessment Nausea/Vomiting Presence: None Dehydration:: No
[2019-04-29] MEDS ORDERED: KETOROLAC TROMETHAMINE 15 MG/ML VIAL IV SCH (13:15)
[2019-04-29] MEDS: oxyCODONE HCL/ACETAMINOPHEN 1 TAB TABLET PO PRN (13:43)
[2019-04-29] MEDS: ceFAZolin SODIUM 1 GM in DEXTROSE 5 % IN WATER 100 ML IV SCH ×4 (14:10→20:17)
--- NOTE | 2019-04-29 14:13 | OR ---
Operative Report - Dictated Report Narrative: Date: 04/29/2019 Surgeon: Blu Ball M.D. Operating Room Registered Nurse: Noel Morales PA-C (provided an essential set of skilled educated handset assisted with transfer, positioning, prepping, draping, placement of instruments, insertion of implants, irrigation, closure wounds, and placement of dressings all which could not be performed by the available surgical crew) Preoperative diagnosis: Right subtrochanteric nondisplaced stress reaction Postoperative diagnosis:Right subtrochanteric nondisplaced stress reaction Operations and procedures: 1. Right subtrochanteric stress reaction prophylactic fixed angle nail Anesthesia: General plus local Specimens: None Estimated blood loss: 50 Milliliters Retained implants: [employer] Trigen InterTAN 130 degree size 11.5 mm by 32 centimeter nail with 90 millimeter lag screw Complications: None Indications for procedure: Mrs. Melgar is a 78-year-old female who is been on long-standing medication for osteoporosis who developed a subtrochanteric stress reaction on the right leg. She previously sustained a left subtrochanteric femur fracture due to stress reaction from prolonged anti-osteoporosis medications that she wished to proceed with prophylactic nailing in order to ideally prevent fracture. She was seen in clinic and the risks and benefits alternatives were discussed. The risks of , blood clots, bleeding, infection, nerve/tendon/blood vessel injury, malunion, nonunion, failure of implants, painful implants, arthrosis, and need for additional procedures were discussed. The extremity was marked in the preoperative holding area. Procedure: After marking the operative extremity on the floor, the patient was taken to the operating room. A timeout was performed. IV antibiotics consisting of Ancef were administered. A general anesthetic was induced by anesthesia, and the patient was then placed onto a fracture table with a well-padded perineal post. The nonoperative leg was placed in a well-padded traction boot in slight extension without any traction with an SCD on the leg. The operative leg was placed in a well-padded traction boot. Preliminary images were attained utilizing C-arm in both the AP and lateral views. This confirmed that we had obtained adequate visualization of the fracture as well as reduction. Next the hip was then prepped and draped in a standard sterile fashion. Next the guidewire was placed percutaneously proximal to the greater trochanter to adrián a starting point at the tip of the greater trochanter centered on the lateral view. This was passed down to the level below the lesser trochanter. A scalpel was utilized in order to dissect down to the greater trochanter in order to place the soft tissue protector down to bone. The entry drill was then placed down the proximal femur to the level of the lesser trochanter. A guidewire was then placed and measured up to 32 cm. A series of reamers up to 13 mm with good chatter was utilized. 11.5 mm nail was selected. This was then impacted into place the proper size nail was then selected and impacted into place. The outrigger was utilized in order to confirm the appropriate depth of the nail. Using the alignment device on the outrigger, an incision was made over the lateral femur. Sharp dissection was carried through the iliotibial band down to the proximal femur. The guidewire was placed into the femoral head in a center- center position on AP and lateral views. The tip-apex distance of less than 25 mm combined was obtained. Once we felt that we had placed a guidewire in the appropriate position, it was measured. The lag screw was drilled and secured with good fixation. The lag screw was then secured in place seating fully ensuring that we were within the confines of the bone. The wounds were then thoroughly irrigated. Final images were obtained. The hip was placed through range of motion and showed no crepitance. 0.5% Marcaine without epinephrine was infused around the incisions. The deep fascia was closed with 0 Vicryl, the subcutaneous tissue with 3-0 Vicryl, and the skin was closed with carmita. Sterile dressings of Xeroform, 4 x 4, and tape were applied. All sponge, sharp, and instrument counts were correct prior to closing the wounds. The patient was then awoken and transferred to the postanesthesia care unit in stable condition.
[2019-04-29] MEDS ORDERED: MONTELUKAST SODIUM 10 MG TABLET PO SCH ×2 (17:00→21:00)
[2019-04-29] MEDS ORDERED: SENNOSIDES/DOCUSATE SODIUM 1 TAB TABLET PO SCH (21:00)
[2019-04-29] MEDS ORDERED: LOSARTAN POTASSIUM 50 MG TABLET PO SCH (21:00)
[2019-04-29] MEDS: predniSONE 10 MG TABLET PO SCH ×2 (21:00→21:08)
[2019-04-29] MEDS: FLUTICASONE PROPION/SALMETEROL 14 PUFF DISK.W.DEV IH SCH (21:01)
[2019-04-29] MEDS: Pravastatin Sodium 40 MG PO SCH (21:23)
[2019-04-30] MEDS: ceFAZolin SODIUM 1 GM in DEXTROSE 5 % IN WATER 100 ML IV SCH ×2 (01:54)
[2019-04-30] MEDS: oxyCODONE HCL/ACETAMINOPHEN 1 TAB TABLET PO PRN ×2 (05:31→18:15)
[2019-04-30] MEDS ORDERED: LEVOTHYROXINE SODIUM 50 MCG TABLET PO SCH ×2 (07:00→09:00)
[2019-04-30] MEDS ORDERED: PANTOPRAZOLE SODIUM 40 MG TABLET.EC PO SCH (07:00)
[2019-04-30] MEDS: Pravastatin Sodium 40 MG PO SCH (08:48)
[2019-04-30] MEDS: FLUTICASONE PROPION/SALMETEROL 14 PUFF DISK.W.DEV IH SCH (08:48)
[2019-04-30] MEDS: MECLIZINE HCL 25 MG TABLET PO PRN ×2 (08:48→16:16)
[2019-04-30] MEDS: predniSONE 10 MG TABLET PO SCH (08:49)
[2019-04-30] MEDS ORDERED: FUROSEMIDE 40 MG TABLET PO SCH (09:00)
[2019-04-30] MEDS ORDERED: DILTIAZEM HCL 240 MG CAP.SR.24H PO SCH (09:00)
[2019-04-30] MEDS ORDERED: AZELASTINE HCL 200 SPRAY INHALER NS SCH (09:00)
[2019-04-30] MEDS ORDERED: POTASSIUM CHLORIDE 20 MEQ TABLET.SA PO SCH (09:00)
--- NOTE | 2019-04-30 16:31 | DS ---
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 She elected to proceed with prophylactic intramedullary fixation of her right hip to prevent fracture. Patient was given IV antibiotics pre-and postoperatively. IV and oral pain medicines were ordered. When she was stable on oral pain medication she felt she was safe for discharge. Physical therapy did ambulate her in the hospital and felt she was safe for discharge. She was discharged with instructions to be weightbearing as tolerated. She was discharged on Percocet to take 1 every 2 hours as needed for pain. She is to be up and ambulating weightbearing as tolerated. She will continue outpatient physical therapy. She is to keep her incisions clean and dry until the carmita are removed. She is to report any increasing pain,drainage,fevers greater than 101.5, swelling of the leg or any other concerns. She will have a follow-up in our office in 12 to 14 days for staple removal. Course of stay was uneventful and she was discharged in stable condition. Procedures Performed: see notes below List Procedures: Prophylactic cephalo-medullary internal fixation right hip osteopetrosis Discharge Location: Home Disposition: Home self-care Condition: Good Discharge Activity: Activity as tolerated, Weight bearing Discharge Diet: General/regular food Referrals: Fredis Grajeda MD [Primary Care Provider] - Additional Patient Instructions (free text): Outpatient Physical therapy at [facility] on 05/04/19 at 8:30am. Please fax PT order to [phone]. Prescriptions (Any new or edited meds): oxyCODONE HCL/ACETAMINOPHEN [Percocet 5 MG/325 MG] 1 tab PO Q2H PRN #42 tab PRN Reason: Moderate Pain (Pain Scale 4-6) Sennosides/Docusate Sodium [Senokot-S] 2 tab PO HS #30 tab Complete Home Medications List: Complete Home Medication List: albuterol sulfate HFA 90 mcg/actuation aerosol inhaler 2 puff IH .Q4- 6 hours PRN #24 g 08/04/18 ergocalciferol (vitamin D2) 50,000 unit capsule 50,000 unit PO .every 2 weeks #10 cap 08/04/18 fexofenadine 180 mg tablet 180 mg PO DAILY PRN #90 tab 08/04/18 fluticasone 250 mcg-salmeterol 50 mcg/dose blistr powdr for inhalation 1 inh IH BID #180 ea 08/04/18 ipratropium-albuterol 0.5 mg-3 mg(2.5 mg base)/3 mL nebulization soln 3 ml IH QID PRN #180 ml 08/04/18 montelukast 10 mg tablet 10 mg PO QPM #90 tab 08/04/18 omeprazole 40 mg capsule,delayed release 40 mg PO DAILY #90 cap 08/04/18 pravastatin 40 mg tablet 40 mg PO DAILY #90 tab 08/04/18 losartan 25 mg tablet 12.5 mg PO HS 90 Days #45 tab 09/05/18 diltiazem CD 240 mg capsule,extended release 24 hr 240 mg PO DAILY #90 cap 09/08/18 levothyroxine 50 mcg tablet See Rx Instructions PO DAILY #72 tab 12/01/18 Acetaminophen [Tylenol] 1,000 mg PO Q6H PRN tab 12/26/18 Azelastine HCl [Astepro Nasal [place]] 2 spray NS DAILY inhaler 12/26/18 furosemide 20 mg tablet 40 mg PO DAILY #1 tab 04/03/19 potassium chloride ER 10 mEq tablet,extended release 20 meq PO DAILY 90 Days #180 tab 04/03/19 Knee-high compression stockings 0 .ROUTE .MEDSUPPLY #1 ea 04/08/19 Calcium Carbonate [Calcium] 750 mg PO BID 04/29/19 Levothyroxine Sodium [Synthroid] 25 mcg PO [id number]@0700 tab 04/30/19 Levothyroxine Sodium [Synthroid] 50 mcg PO [id number]@0700 tab 04/30/19 Sennosides/Docusate Sodium [Senokot-S] 2 tab PO HS #30 tab 04/30/19 oxyCODONE HCL/ACETAMINOPHEN [Percocet 5 MG/325 MG] 1 tab PO Q2H PRN #42 tab 04/30/19 predniSONE [Prednisone] 30 mg PO BID tab 04/30/19 Amb Orders for Discharge: PT Evaluation and Treatment* Facility: [facility], Location: Rehabilitation Services
[2019-04-30 22:35] VITALS: BP 147/62
[2019-05-02] MEDS ORDERED: LEVOTHYROXINE SODIUM 25 MCG TABLET PO SCH (07:00)
[2019-05-04] MEDS ORDERED: ERGOCALCIFEROL 50000 UNIT TABLET PO SCH (09:00)
--- NOTE | 2019-05-04 09:52 | POSTOP NO ---
Post Operative Diagnosis/Procedures: see op note for details
== END 2019-04-30 19:50 | disposition home or self-care (01) | DRG 482 ==
LOC: MS 09:46
PROVIDERS: ADMIT Orthopaedic Surgery; ATTEND Orthopaedic Surgery
DX: M80.851A Other osteoporosis with current pathological fracture, right femur, initial encounter for fracture; M80.852D Other osteoporosis with current pathological fracture, left femur, subsequent encounter for fracture with routine healing; R42 Dizziness and giddiness; E03.9 Hypothyroidism, unspecified; T45.8X5A Adverse effect of other primarily systemic and hematological agents, initial encounter; K21.9 Gastro-esophageal reflux disease without esophagitis; G89.18 Other acute postprocedural pain; I10 Essential (primary) hypertension; E78.5 Hyperlipidemia, unspecified; Z87.891 Personal history of nicotine dependence
CPT/HCPCS: 73502; 97110; 97116; 97161; 97165; J2405